=== PATIENT | male | born 1950 | race Caucasian/White ===

== ENCOUNTER 2019-04-24 05:30 | Observation (INO) | payer MEDICARE, OTHER, SELFPAY ==
[2019-04-11 10:00] VITALS: BP 150/81; PULSE 58; RESP 16; TEMP 36.3; O2SAT 97; BMI 30.6
--- NOTE | 2019-04-11 10:23 | SDCEKG_ITS ---
Test Reason : Blood Pressure : / mmHG Vent. Rate : 061 BPM Atrial Rate : 061 BPM P-R Int : 180 ms QRS Dur : 092 ms QT Int : 398 ms P-R-T Axes : 018 -06 001 degrees QTc Int : 400 ms Normal sinus rhythm Normal ECG Confirmed by MITCHEL WATTERS, JUDSON ([id number]), metropolitan editor FELIPA MOTT ([id number]) on 04/17/2019 11:29:12 AM Referred By: Kulwinder Berumen Confirmed By:JUDSON GRULLON MD
[2019-04-11 10:50] LABS: Absolute Lymphocyte Count 1.61 X10^3/uL (0.83-4.51); Absolute Neutrophil Count 3.4 X10^3/uL (2.0-7.7); Basophil# 0.03 X10^3/uL; Basophil% 0.5 % (0-1); Eosinophil# 0.26 X10^3/uL; Eosinophils% 4.4 % (0-5); Hematocrit 37.7 % (40-54); Hemoglobin 12.8 g/dL (13.0-16.5); Lymphocyte # 1.61 X10^3/ul (4.0); Lymphocyte % 27.4 % (19-41); Mean Corpuscular Hgb 31.6 pg (27.0-32.0); Mean Corpuscular Volume 93.1 fL (80-94); Mean Platelet Vol. 10.1 fl (6.2-12.0); Monocyte# 0.56 X10^3/uL; Monocyte% 9.5 % (0-10); NRBC Flagged by Analyzer 0 % (0-5); Neutrophil # 3.41 X10^3/uL (2.7-7.7); Platelet Count 162 K/mm3 (150-450); RBC Distribution Width CV 12.2 % (11.6-14.6); RBC Distribution Width SD 42.1 fl (35.1-43.9); Red Blood Count 4.05 M/mm3 (4.6-6.2); White Blood Count 5.9 K/mm3 (4.4-11.0)
[2019-04-11 11:16] LABS: Anion Gap 5 (5-15); BUN 17 mg/dL (7-18); BUN/Creat Ratio 21.5 RATIO (10-20); Calcium,Total 8.8 mg/dL (8.5-10.1); Chloride 109 mmol/L (98-107); Creatinine, Serum 0.79 mg/dL (0.70-1.30); EST Glomerular Filtration Rate 103 mL/min (>60); Est Glom Filt Rate - Afr Amer 124 mL/min (>60); Estimated Creatinine Clearance 64.26 ml/min; Glucose 104 mg/dL (74-106); Potassium 3.8 mmol/L (3.5-5.1); Sodium Level 139 mmol/L (136-145)
[2019-04-11 16:52] LABS: Hemoglobin A1c 5.3 % (4.2-6.3)
[2019-04-24] VITALS (11 sets, daily range): BP systolic 99–136; BP diastolic 58–83; PULSE 56–82; RESP 14–18; TEMP 36.4–37; O2SAT 89–100; BMI 30.6
[2019-04-24] MEDS: Lactated Ringers 1,000 ML 100 ML IV ×4 (06:14→23:39)
[2019-04-24 06:15] LABS: Bedside Glucose 135 mg/dL (70-110)
[2019-04-24] MEDS: Acetaminophen 500 MG Tablet 1000 MG PO ×3 (06:21→22:07)
[2019-04-24] MEDS: Gabapentin 600 MG Tablet PO (06:23)
[2019-04-24] MEDS: Magnesium Sulfate 4gm/100mL 4 GM/100 ML IV.SOLN. IV (06:24)
[2019-04-24] MEDS: Scopolamine 1mg/72hr Patch 1 PATCH TD (06:45)
--- NOTE | 2019-04-24 07:15 | KNEE_PTH ---
PATIENT: MATIAS SCHULZ LOC: MS3 U#:[id number] AGE/SX: 68/M ROOM: NC317 RE04/24/[address]: Dr. Kulwinder Berumen DO : 1950 BED: 1 DIS: 04/25/2019 SPEC #: [id number] RECD: 04/24/19 10:26 STATUS: MARIANN REQ #: [id number] MORIS: 04/24/19 07:[address]: Kulwinder Berumen DEPT: SURGICAL PATHOLOGY RECD BY: Raghu Dodson ENTERED: 04/24/19 11:14 SP TYPE: TOTAL KNEE OTHR DR: Dr. Graham Frost MD Tissues: Knee, NOS Procedures: Decalcification bone/plaque Surgery Specimen Level IV HEADER OPERATION: ERAS, total knee replacement PRE-OP DIAGNOSIS: Unilateral primary osteoarthritis, right knee TISSUE SUBMITTED: Bone and soft tissue, right knee MICROSCOPIC DIAGNOSIS Bone and soft tissue, right knee, total knee replacement/resection: Pieces of bone with degenerative osteoarthritic changes. Fibroadipose tissue, fibroconnective tissue and reactive synovial tissue. MARGARITA:anastacia 05/01/19 MICROSCOPIC DESCRIPTION Slides are reviewed. GROSS DESCRIPTION Received is one container designated bone and soft tissue right knee. The specimen consists of multiple fragments of onofre-yellow bone measuring in aggregate 15 x 12 x 2 cm. Also in the specimen container are multiple fragments of yellow-white soft tissue measuring in aggregate 4 x 3 x 2.5 cm. A number of bony fragments contain articular surfaces consistent with tibial plateau and femoral condyle and displaying prominent osteophyte formation, eburnation, and bone erosion. Jboss Architect sections are submitted in two cassettes as follows: 1 - soft tissue, 2 - bone after decalcification. / AM:anastacia 04/24/19 :5 CPT: 80194, 79214
[2019-04-24] MEDS: Cefazolin 2 GM in 0.9% Normal Saline 100 ML IV (07:20)
--- NOTE | 2019-04-24 08:39 | OP.PCM_ITS ---
Report of Operation Date of Procedure: 04/24/19 Pre-Operative Diagnosis: OA right knee Post-Operative Diagnosis: same Surgery/Procedure Performed:: Right TKR Description of Surgical Findings:: Primary Surgeon/Physician: Kulwinder Berumen budget accountant: Orlando Jeffries PA-C budget accountant: Pre-Operative Diagnosis: OA right knee Post-Operative Diagnosis: same Surgery/Procedure Performed: Right TKR Estimated Blood Loss: 10 cc Specimen's Removed: bone Type of Anesthesia: general ASA Class: 2 Implants: [Kieran Triathlon size 5 CR femur, size 6 tibia, 9 mm CS poly, 40 mm patella, all components press-fit ] Indications: Patient has severe end-stage osteoarthritis diagnosed via x-rays in the knee. They have failed all forms of conservative measures including activity modification, injections, anti-inflammatories, use of assistive device. The patient has pain that affects on a daily basis and prevents him from doing things that they enjoyed. They have elected to undergo the above procedure. The risks of the procedure were discussed at length and their questions were answered. Procedure Description: The patient was greeted in the preoperative area. The [right ] knee was then marked with a surgical marker. Patient was then taken to or [address]. They were administered a dose of antibiotics as well as tranexamic acid. Once adequate anesthesia was obtained and airway was secured to placed in supine position on the operating room table. A well-padded tourniquet was placed on the affected extremity. Leg was then prepped and draped in the usual sterile fashion from the knee down. Ioban was used on the skin. Surgical timeout was then performed and confirmed with all present. Six-inch Esmarch was used to examine the limb and tourniquet was then inflated to 250 mmHg. A longitudinal incision was then planned and carried out in the anterior aspect of the knee. The dissection was then carried the length of the incision the extensor mechanism was identified. Standard medial parapatellar arthrotomy was then performed revealing severe eburnation of bone and periarticular osteophytes. There is complete loss of cartilage especially in the medial compartment with varus alignment. Anterior fat pad was removed for visualization purposes and the anterior medial aspect of the tibia was skeletoni zed for exposure to the knee. The knee was then flexed the patella was inverted. Opening reamer was then used in the femur approximately 1 cm anterior to the attachment of the PCL. The intramedullary valgus wand was then placed in the femur set at 5? of valgus. The distal femoral cutting jig was then applied to the femur with anticipated resection of approximately 8 mm. This was then made with a oscillating saw. The sizing guide was then placed referencing off the posterior condyles and also reference off the epicondylar axis. This was measured and the appropriate size 4-in-1 cutting jig was then applied to the distal femur. Anterior posterior cuts were made followed by the anterior and posterior chamfer cuts. These bony pieces and fragments were removed and placed on the back table. Posterior retractor was then utilized and the tibia was subluxed anteriorly. Intramedullary tibial alignment jig was then applied to the tibia referencing off the medial one third of the tibial tubercle the anterior tibial spine the middle aspect of the tibiotalar joint. Also reference off patient's [place] slope. The tibial cutting jig was then pinned with anticipated resection of 2 mm off of the deficient medial tibial condyle. This cut was made with the oscillating saw. Once this was complete a laminar major donor coordinator was utilized in both medial lateral meniscus were removed and a posteri or capsular osteophytes were also removed. Posterior capsule release was performed in the posterior capsule as well as the geniculate arteries are treated with the aqua Balaji. The tibia was incised and the appropriate sized tibial tray was then pinned. The femoral trial was then placed and the knee was trialed. Full flexion-extension were easily achieved. The knee seemed to balance quite nicely. Any remaining osteophytes were removed at this time. Once this was complete the patella was everted and the [place] patella reaming device was then utilized the patella was then placed in the appropriate jig and reamer was then used to remove approximately 9 mm of the undersurface of the patella. A soft tissue remaining was in the way was removed and patella trial was then placed listed maintain excellent tracking using the no thumbs technique. The tibial tray at this point was punched to accommodate the fins of the final implant. Did use a cocktail of injection for postoperative pain control. The final components were then impacted. The tourniquet was deflated and hemostasis was perfect with Bovie cautery as well as the aqua Manus. Needle is once again trialed with different size polyethylenes to ensure the full range of motion was achieved as well as excellent balancing ligamentously was achieved. At this point the knee was copiously irrigated. Final implant was then inserted locking mechanism was engaged and confirmed to be locked. The arthrotomy was then closed with #1 Vicryl aggravate type fashion interrupted. Subcutaneous tissue was closed with 0 Vicryl and surgical sosa were placed in the skin. A occlusive silver impregnated dressing was then applied followed by well-padded sterile dressing secured with an Gt wrap. The patient was taken to the PACU in stable condition. No complications known at this time. Postoperatively we will maintain standard total knee postoperative protocol. The use of the physician cardiovascular physician assistant was integral during this procedure. They assisted with positioning placement of the tourniquet retracting closure and placement of the dressing. The procedure would have been much more difficult without their expertise and assistance budget accountant: Rigoberto Jeffries Type of Anesthesia:: General Anesthesiologist: Patricio Canseco Specimen's removed: bone Estimated Blood Loss (mL): 10cc - Admit VTE Documentation VTE Present on Admission: No VTE Mechan Device Prophylaxis: SCD's, Thigh High YANET Hose VTE Pharm Prophylaxis ordered?: Yes
[2019-04-24 09:48] LABS: Hematocrit 36.2 % (40-54); Hemoglobin 11.9 g/dL (13.0-16.5); Mean Corp Hgb Conc 32.9 g/dL (32-36); Mean Corpuscular Hgb 31.8 pg (27.0-32.0); Mean Corpuscular Volume 96.8 fL (80-94); Mean Platelet Vol. 9.9 fl (6.2-12.0); Platelet Count 186 K/mm3 (150-450); RBC Distribution Width CV 12.2 % (11.6-14.6); RBC Distribution Width SD 43.8 fl (35.1-43.9); Red Blood Count 3.74 M/mm3 (4.6-6.2); White Blood Count 8.4 K/mm3 (4.4-11.0)
[2019-04-24 09:59] LABS: Anion Gap 4 (5-15); BUN 14 mg/dL (7-18); BUN/Creat Ratio 16.1 RATIO (10-20); Calcium,Total 7.8 mg/dL (8.5-10.1); Chloride 108 mmol/L (98-107); Creatinine, Serum 0.87 mg/dL (0.70-1.30); EST Glomerular Filtration Rate 92 mL/min (>60); Est Glom Filt Rate - Afr Amer 112 mL/min (>60); Estimated Creatinine Clearance 73.87 ml/min; Glucose 189 mg/dL (74-106); Potassium 4.3 mmol/L (3.5-5.1); Sodium Level 138 mmol/L (136-145)
[2019-04-24 10:05] LABS: Bedside Glucose 164 mg/dL (70-110)
--- NOTE | 2019-04-24 13:33 | NURSING ---
Pt out of bed to bathroom at this time- tolerated well
[2019-04-24] MEDS: ALPRAZolam 0.25 MG Tablet PO (13:46)
[2019-04-24] MEDS: Cefazolin 1 GM/50 ML BAG IV ×2 (15:39→23:39)
[2019-04-24] MEDS: oxyCODONE 5 MG Tablet PO ×2 (15:46→20:13)
[2019-04-24] MEDS: Aspirin 325 MG Tablet PO (18:30)
[2019-04-24] MEDS: traMADol 50 MG Tablet PO (18:32)
[2019-04-24] MEDS: Carvedilol 25 MG Tablet PO (22:07)
[2019-04-24] MEDS: Senna/Docusate Sodium 1 Tablet 2 TABLET PO (22:07)
[2019-04-25] MEDS: traMADol 50 MG Tablet PO ×2 (00:56→13:20)
[2019-04-25 02:30] VITALS: BP 115/68; PULSE 65; RESP 18; TEMP 36.6; O2SAT 96
[2019-04-25] MEDS: oxyCODONE 5 MG Tablet PO ×4 (02:38→15:15)
[2019-04-25] MEDS: Acetaminophen 500 MG Tablet 1000 MG PO ×2 (05:21→14:01)
[2019-04-25 06:55] LABS: Hemoglobin 10.6 g/dL (13.0-16.5); Mean Corp Hgb Conc 33.1 g/dL (32-36); Mean Corpuscular Volume 96.7 fL (80-94); Mean Platelet Vol. 10.2 fl (6.2-12.0); Platelet Count 155 K/mm3 (150-450); RBC Distribution Width CV 12.3 % (11.6-14.6); RBC Distribution Width SD 43.6 fl (35.1-43.9); Red Blood Count 3.31 M/mm3 (4.6-6.2); White Blood Count 10.9 K/mm3 (4.4-11.0)
[2019-04-25 07:07] LABS: Anion Gap 4 (5-15); BUN 18 mg/dL (7-18); BUN/Creat Ratio 20.2 RATIO (10-20); Calcium,Total 7.8 mg/dL (8.5-10.1); Chloride 104 mmol/L (98-107); Creatinine, Serum 0.89 mg/dL (0.70-1.30); EST Glomerular Filtration Rate 90 mL/min (>60); Est Glom Filt Rate - Afr Amer 109 mL/min (>60); Estimated Creatinine Clearance 72.21 ml/min; Glucose 119 mg/dL (74-106); Potassium 4.2 mmol/L (3.5-5.1); Sodium Level 136 mmol/L (136-145)
[2019-04-25 07:36] VITALS: BP 116/57; PULSE 59; RESP 16; TEMP 37.4; O2SAT 95
[2019-04-25] MEDS: Pyridoxine HCl 50 MG Tablet 100 MG PO (07:38)
[2019-04-25] MEDS: Folic Acid 1 MG Tablet 0.5 MG PO (07:39)
[2019-04-25] MEDS: Senna/Docusate Sodium 1 Tablet 2 TABLET PO (07:39)
[2019-04-25] MEDS: Cyanocobalamin 500 MCG Tablet PO (07:39)
[2019-04-25] MEDS: Tamsulosin HCl 0.4 MG Capsule PO (07:39)
[2019-04-25] MEDS: amLODIPine 10 MG Tablet PO (07:40)
[2019-04-25] MEDS: Finasteride 5 MG Tablet PO (07:40)
[2019-04-25] MEDS: Ascorbic Acid 500 MG Tablet 1000 MG PO (07:41)
[2019-04-25] MEDS: Aspirin 325 MG Tablet PO (07:43)
--- NOTE | 2019-04-25 07:56 | PCM.PN.ORT ---
Subjective: Sitting at bedside eating breakfast. Patient has no complaints. Patient denies chest pain, shortness of breath, calf pain, nausea vomiting. Patient ready for discharge home. Objective: Dressing is clean dry intact. Vital signs labs within normal limits. Patient is afebrile, neurovascular is otherwise intact. No signs or symptoms of DVT. Patient has no respiratory distress, speaking in full sentences. - Physical Exam Vitals/I&O's: Vital Signs Temp Pulse Resp BP Pulse Ox 99.4 F H 59 L 16 116/57 L 95 04/25/19 07:36 04/25/19 07:36 04/25/19 07:36 04/25/19 07:36 04/25/19 07:36 Oxygen Flow Rate (L/min) 6 Oxygen Delivery Method Room Air Weight: 88.7 kg Body Mass Index (BMI) 30.6 Finger Stick Blood Glucose 164 Intake and Output for Last 24 Hours 04/23/19 04/24/19 04/25/19 23:59 23:59 23:59 Intake Total 4233.34 / 4833.34 2423 / 2423 Balance 4233.34 / 4833.34 2423 / 2423 General: Alert, Oriented x3, Cooperative HEENT: PERRLA Oral: Moist Mucosa Neurological: Cranial nerves II-XII grossly intact Psych/Mental Status: Normal Affect, Alert and oriented to time, place, person, mood and affect Laboratory Results 04/24/19 09:38: WBC 8.4, RBC 3.74 L, Hgb 11.9 L, Hct 36.2 L, MCV 96.8 H, MCH 31.8, MCHC 32.9, RDW Std Deviation 43.8, RDW Coeff of Terrance 12.2, Plt Count 186, MPV 9.9 04/24/19 09:38: Sodium 138, Potassium 4.3, Chloride 108 H, Carbon Dioxide 26.0, Anion Gap 4 L, BUN 14, Creatinine 0.87, Estim Creat Clear Calc 73.87, Est GFR (MDRD) Af Amer 112, Est GFR (MDRD) Non-Af 92, BUN/Creatinine Ratio 16.1, Glucose 189 H, Calcium 7.8 L 04/24/19 10:02: POC Glucose 164 H 04/25/19 06:15: WBC 10.9, RBC 3.31 L, Hgb 10.6 L, Hct 32.0 L, MCV 96.7 H, MCH 32.0, MCHC 33.1, RDW Std Deviation 43.6, RDW Coeff of Terrance 12.3, Plt Count 155, MPV 10.2 04/25/19 06:15: Sodium 136, Potassium 4.2, Chloride 104, Carbon Dioxide 28.0, Anion Gap 4 L, BUN 18, Creatinine 0.89, Estim Creat Clear Calc 72.21, Est GFR (MDRD) Af Amer 109, Est GFR (MDRD) Non-Af 90, BUN/Creatinine Ratio 20.2 H, Glucose 119 H, Calcium 7.8 L Current Medications Acetaminophen (Tylenol) 1,000 mg PO Q8 [facility] Last Admin: 04/25/19 05:21 Dose: 1,000 mg Documented by: Alprazolam (Xanax) 0.25 mg PO DAILY PRN PRN PRN Reason: ANXIETY Last Admin: 04/24/19 13:46 Dose: 0.25 mg Documented by: Amlodipine Besylate (Norvasc) 10 mg PO DAILY [facility] Last Admin: 04/25/19 07:40 Dose: 10 mg Documented by: Ascorbic Acid (Vitamin C) 1,000 mg PO DAILY [facility] Last Admin: 04/25/19 07:41 Dose: 1,000 mg Documented by: [facility]in) [facility] Last Admin: 04/25/19 07:43 Dose: 325 mg Documented by: Carvedilol (Coreg) 25 mg PO BID [facility] Last Admin: 04/24/19 22:07 Dose: 25 mg Documented by: Cyanocobalamin (Vitamin B12) 500 mcg PO DAILY [facility] Last Admin: 04/25/19 07:39 Dose: 500 mcg Documented by: Finasteride (Proscar) 5 mg PO DAILY [facility] Last Admin: 04/25/19 07:40 Dose: 5 mg Documented by: Folic Acid (Folic Acid) 0.5 mg PO DAILY@0800 [facility] Last Admin: 04/25/19 07:39 Dose: 0.5 mg Documented by: Sodium Chloride () 250 mls @ 15 mls/hr IV .[id number] PRN PRN Reason: Saline Flush Sodium Chloride () 250 mls @ 15 mls/hr IV .[id number] PRN PRN Reason: Additional IVPB Infusion Insulin Human Lispro (Humalog Kwikpen (Bkc)) 1 - 6 unit SC Q4H PRN PRN; Protocol PRN Reason: BG>/= 180, SEE PROTOCOL Lisinopril (Zestril) 40 mg PO DAILY [facility] Ondansetron HCl (Zofran) 4 mg IV Q8H PRN PRN PRN Reason: NAUSEA Oxycodone HCl (Oxyir) 5 - 10 mg PO Q4H PRN PRN PRN Reason: Pain Score 4-10/10 Last Admin: 04/25/19 07:03 Dose: 10 mg Documented by: Promethazine HCl (Phenergan) 12.5 mg IM Q6H PRN PRN; Protocol PRN Reason: NAUSEA/VOMITING Pyridoxine HCl (Vitamin B-6) 100 mg PO DAILY [facility] Last Admin: 04/25/19 07:38 Dose: 100 mg Documented by: Senna/Docusate Sodium (Senokot-S, Thea-Colace) 2 tablet PO BID [facility] Last Admin: 04/25/19 07:39 Dose: 2 tablet Documented by: Sodium Chloride () 10 - 40 ml IV UD PRN PRN Reason: SALINE FLUSH Tamsulosin HCl (Flomax) 0.4 mg PO DAILY@0830 [facility] Last Admin: 04/25/19 07:39 Dose: 0.4 mg Documented by: Tramadol HCl (Ultram) 50 - 100 mg PO Q6H PRN PRN Reason: Pain Score 1-10/10 Last Admin: 04/25/19 00:56 Dose: 100 mg Documented by: Medical Necessity - Tobacco Use Smoking Status: Former smoker Tobacco Use: Non-smoker Assessment/Plan All Active Problems Pancreatitis (Acute) Status post left total knee arthroplasty Plan 1. Continue all pain medications as prescribed 2. Continue physical therapy today, as well as outpatient, weight-bear as tolerated with walker 3. Aspirin 325 mg 1 p.o. every 12 hours x30 days for postop DVT prophylaxis 4. Encourage incentive spirometry 5. Follow-up as scheduled, see pink sheet 6. Discharge home today
--- NOTE | 2019-04-25 08:07 | DCINST_ITS ---
Discharge Diet: No Restrictions Discharge Activity: May Not Drive, May Shower, Use Walker May shower in (days): 3 Ice area for (Minutes): 20 - each hour while awake. Weight Bearing Status: Weight bearing as tolerated Elevate: Operative Extremity Additional Activity Instructions:: Wear elastic stockings for 2 weeks after your surgery. Call your doctor if your incision/area has: Continuous Slow Oozing, Sudden Increased Bleeding, Increased Pain/ Swelling, Increased Redness, Foul Smelling Discharge Call your doctor if you observe: Fever of 101 or Higher, Coldness, Increased Pain - in extremity, Numbness or Tingling, Change in Color, Calf discomfort, Uncontrolled pain Change Dressing in (Days):: 0 - and daily as needed. Remove Dressing in (days):: 8 Cleanse incision/area with: Soap & Water Allergies/Adverse Reactions: Allergies No Known Allergies Allergy (Verified 04/24/19 05:57) Medications to take at Discharge ALPRAZolam [Xanax] 0.25 mg PO DAILY PRN PRN 10/13/15 Ascorbic Acid [Vitamin C] 1,000 mg PO DAILY 10/13/15 Carvedilol 25 mg PO BID 10/13/15 Cyanocobalamin (Vitamin B-12) [Vitamin B-12] 500 mcg PO DAILY 10/13/15 Felodipine [Plendil] 10 mg PO DAILY 10/13/15 Finasteride [Proscar] 5 mg PO DAILY 10/13/15 Folic Acid 0.4 mg PO DAILY 10/13/15 Lisinopril [Zestril] 40 mg PO DAILY 10/13/15 [place]-3 Fatty Acids [Fish Oil] 1,200 mg PO DAILY 10/13/15 Pyridoxine HCl [Vitamin B6] 100 mg PO DAILY 10/13/15 Tamsulosin HCl 0.4 mg PO DAILY 10/13/15 Amlodipine [Norvasc] 10 mg PO DAILY 04/11/19 Sildenafil Citrate [Viagra] 50 mg PO PRN PRN 04/11/19 Acetaminophen [Tylenol] 1,000 mg PO Q8 #90 tab 04/25/19 Aspirin 325 mg PO BIDCM #60 tab 04/25/19 Oxycodone [Oxyir] 5 - 10 mg PO Q4H PRN PRN 7 Days #84 tab 04/25/19 The following prescriptions were given: Aspirin 325 mg PO BIDCM #60 tab Transmission Status: Pending to [id number] Oxycodone [Oxyir] 5 - 10 mg PO Q4H PRN PRN 7 Days #84 tab PRN Reason: Pain Score 4-10/10 Transmission Status: Received by [id number] Acetaminophen [Tylenol] 1,000 mg PO Q8 #90 tab Transmission Status: Pending to [facility][id number] Primary Care Physician: Graham Frost MD [Primary Care Provider] - Test Results: Test results from this visit will be discussed in further detail at your follow- up appointment, if applicable. Please Follow Up With: Rigoberto Jeffries PA-C When: as scheduled
[2019-04-25 09:29] VITALS: PULSE 70
[2019-04-25 09:35] VITALS: BP 132/89; PULSE 71
[2019-04-25] MEDS: Carvedilol 25 MG Tablet PO (09:37)
[2019-04-25] MEDS: Lisinopril 40 MG Tablet PO (09:37)
--- NOTE | 2019-04-25 10:05 | CASEMGMT ---
RN CHADD Face to Face with patient for initial transition planning/care coordination assessment. RN CM introduced self and role at [facility]. Patient lying in bed, alert and oriented. Patient willing to participate in assessment and is able to answer all questions appropriately. Care providers, pharmacy, and demographics verified. Patient wishes to discharge home and is setup with [facility] for outpatient therapy. Patient states he has no further needs or concerns at this time. CM to follow for discharge planning needs that may arise. PCP: Flo Specialists: Alicia Berumen Pharmacy: [facility] Insurance: [facility], [facility] Prescription Benefit: yes Living Will/HPOA: none LNOK: Living Arrangements: Patient lives with in 2 story home with bed and bath on first floor. Transportation: DME/HHC: Patient has cane, walker, shower chair, and raised toilet seat. Disposition Plan: Patient to discharge home with outpatient therapy, family support, and follow-up plans in place. Meredith CASTILLO, RN, CM
[2019-04-25 13:57] VITALS: BP 136/69; PULSE 83; RESP 16; TEMP 37.7; O2SAT 93
[2019-04-25 15:10] VITALS: TEMP 37.2
== END 2019-04-25 15:34 | disposition home or self-care (01) ==
LOC: ACINP 04-25 06:13 → MS3 04-25 06:13
PROVIDERS: Admitting Provider Orthopaedic Surgery; Family Provider Internal Medicine; PCP Internal Medicine; Referring Provider Orthopaedic Surgery; Visit Provider Orthopaedic Surgery
PROC: (CPT 27447; principal; 2019-04-24 06:50)
DX: M17.11 Unilateral primary osteoarthritis, right knee (principal); E11.9 Type 2 diabetes mellitus without complications; I10 Essential (primary) hypertension; F32.9 Major depressive disorder, single episode, unspecified; Z79.899 Other long term (current) drug therapy; Z87.891 Personal history of nicotine dependence; F41.9 Anxiety disorder, unspecified
CPT/HCPCS: 01400; 27447; 36415; 80048; 82962; 83036; 85025; 85027; 87081; 88305; 88311; 93005; 96361; 96365; 96366; 97110; 97116; 97162; 97166; 97530; 97535; 99218; 99251; C1776; J7120; G0378; G0379; G0463

== ENCOUNTER 2019-05-29 07:02 | Emergency (ER) | payer MEDICARE, OTHER, SELFPAY ==
[2019-04-24 11:06] VITALS: BMI 30.6
[2019-05-29 07:03] VITALS: BP 132/100; PULSE 90; RESP 18; TEMP 36.7; O2SAT 97; BMI 27.3
[2019-05-29 07:09] VITALS: BP 139/93; PULSE 88; RESP 95
--- NOTE | 2019-05-29 07:19 | EKG12_ITS ---
Test Reason : ABD PAIN Blood Pressure : / mmHG Vent. Rate : 081 BPM Atrial Rate : 081 BPM P-R Int : 158 ms QRS Dur : 090 ms QT Int : 366 ms P-R-T Axes : 046 -24 020 degrees QTc Int : 425 ms Normal sinus rhythm Leftward axis Confirmed by TREE WATTERS, MATIAS ([id number]), film editor supervisor FELIPA MOTT ([id number]) on 05/31/2019 8:54:28 AM Referred By: MINISETRIO Confirmed By:MATIAS LEAVITT MD
--- NOTE | 2019-05-29 07:20 | ED.VIS.GEN ---
History of Present Illness Chief Complaint: Abd Pain Informant: Patient, Significant Other Onset: Today - He was awakened from sleep with pain that does not radiate. He does report nausea and emesis x1. He states he believes he has exacerbation of pancreatitis. The etiology of his pancreatitis is unknown. He reports having a half a glass of wine on Wednesday., Days - Complaints of a knot sensation in the epigastric left upper quadrant that started a couple of days ago. Context: Sudden Onset Timing: Continuous Quality: Pain Location: Epigastric left upper quadrant Current Severity: Moderate Maximum Severity: Severe Worsened by: Nothing Relieved by: Nothing Associated Symptoms: Nausea and vomiting x1 Narrative: Patient is an elderly male with history of hypertension and diet-controlled diabetes who presents with a knot sensation in the epigastric area that started several days ago. He admits to having half a glass of wine on Wednesday. This morning he was awakened from sleep with severe epigastric left upper quadrant pain without radiation. He reports nausea and had one episode of emesis. Emesis was clear. He denies black or maroon stool. He does have history of renal lithiasis. He denies dysuria, frequency, urgency or hematuria. He and his states he has not had abdominal pain due to pancreatitis in 4 years. Prior similar symptoms: Yes Recent Illness/Hospitalization: No - Past Medical History (1) Pancreatitis Status: Acute (2) BPH (benign prostatic hyperplasia) Status: Chronic (3) HTN (hypertension) Status: Chronic Past Medical History - Allergies and Home Meds Allergies/Adverse Reactions: Allergies No Known Allergies Allergy (Verified 05/29/19 07:03) Primary Care Physician: Bruce Rossi MD [Primary Care Provider] - Prior records reviewed: Yes Surgical History: no surgical history Lives: Spouse/ Significant Other Smoking Status: Never smoker Alcohol: Rare Drugs: None - Family History Maternal Family History: Reports: - Paternal Family History: Reports: No pertinent history Sibling Family History: Reports: - Review of Systems General: Denies: Chills, Fever, Sweats Eyes: Denies: Visual changes - bilaterally, Blurred Vision - bilaterally, Diplopia ENT: Denies: Rhinorrhea, Sore throat Cardiovascular: Denies: Chest pain, Palpitations Respiratory: Denies: Dyspnea, Cough, Dyspnea on exertion Gastrointestinal: Reports: Abdominal pain, Nausea, Vomiting. Denies: Diarrhea, Constipation, Melena, Hematochezia, -, - Genitourinary: Denies: Dysuria, Hematuria, Frequency Musculoskeletal: Denies: Myalgias, Arthralgias, Neck pain, Back pain, Swelling, Extremity Pain Skin: Denies: Rash, Wounds Neurological: Denies: Headache, Weakness, Numbness Hematologic: Denies: Easy bruising, Easy bleeding Physical Exam Vital Signs/Narrative: Vital Signs Temp Pulse Resp BP Pulse Ox 05/29/19 07:09 88 95 H 139/93 H 05/29/19 07:03 98.1 F 90 18 132/100 H 97 Inital Vital Signs reviewed: Yes General: Well nourished, Well developed, Acute Distress Head: Normocephalic, Atraumatic Eyes: Perrl, EOMI ENT: Moist mucous membranes, No rhinorrhea Neck: Supple, Nontender Cardiovascular: Regular rate, Regular rhythm, No murmurs Respiratory: No distress, CTA bilaterally, Chest nontender Abdomen: Soft, Nontender, Nondistended, Normal bowel sounds, No masses Back: Nontender, Normal Inspection Extremities: Nontender, No edema Skin: Normal color, No rash Neurological: Alert, Oriented x3, Cranial nerves II-XII grossly intact, Normal Strength, Normal Sensation, Normal DTR Psychological: Normal affect, Normal Mood Diagnostic/Tx/Re-eval - Medical Decision Making Patient presents with with epigastric pain that abruptly got worse. This may represent peptic ulcer disease, pancreatitis, cholelithiasis or ureterolithiasis. Work-up was initiated. He was medicated with Zofran for his nausea and morphine for his pain. He was informed of his results. He reported little improvement with therapy. He was given a GI cocktail. He was reassessed at 0905. His pain resolved. His informing he recently had surgery and was on aspirin and NSAID. Suspect patient has gastritis versus peptic ulcer disease. Since he does not have black or maroon stool no further testing is indicated or warranted. He was discharged with prescription for Pepcid. ED Disposition - Plan for ED Patient: Disposition: Home or Assisted Living Diagnosis: Acute gastritis without bleeding Instructions: GASTRITIS vs. ULCER Prescriptions: Famotidine [Pepcid] 20 mg PO BID #60 tab Transmission Status: Pending to [facility]/pharmacy #[id number] Referrals: Bruce Rossi MD [Primary Care Provider] - 1 Week if not improving
[2019-05-29] MEDS: Morphine 4 MG/ML Syringe IV (07:30)
[2019-05-29] MEDS: Ondansetron 4 MG/2 ML Vial IV (07:30)
[2019-05-29 07:43] LABS: Absolute Lymphocyte Count 0.93 X10^3/uL (0.83-4.51); Absolute Neutrophil Count 8.1 X10^3/uL (2.0-7.7); Basophil# 0.03 X10^3/uL; Basophil% 0.3 % (0-1); Eosinophil# 0.24 X10^3/uL; Eosinophils% 2.4 % (0-5); Hematocrit 38.8 % (40-54); Hemoglobin 12.8 g/dL (13.0-16.5); Lymphocyte # 0.93 X10^3/ul (4.0); Lymphocyte % 9.5 % (19-41); Mean Corpuscular Hgb 30.5 pg (27.0-32.0); Mean Corpuscular Volume 92.6 fL (80-94); Mean Platelet Vol. 9.4 fl (6.2-12.0); Monocyte# 0.55 X10^3/uL; Monocyte% 5.6 % (0-10); NRBC Flagged by Analyzer 0 % (0-5); Neutrophil # 8.06 X10^3/uL (2.7-7.7); Neutrophil % 81.9 % (47-70); Platelet Count 226 K/mm3 (150-450); RBC Distribution Width CV 11.9 % (11.6-14.6); RBC Distribution Width SD 40.4 fl (35.1-43.9); Red Blood Count 4.19 M/mm3 (4.6-6.2); White Blood Count 9.8 K/mm3 (4.4-11.0)
[2019-05-29 08:03] LABS: ALB/GLOB Ratio 0.9 RATIO (0.9-2.4); AST(SGOT) 12 U/L (15-37); Alanine Aminotransfer ALT/SGPT 19 U/L (16-61); Albumin, Serum 3.5 g/dL (3.2-5.0); Alkaline Phosphatase 113 U/L (45-117); Anion Gap 7 (5-15); BUN 7 mg/dL (7-18); BUN/Creat Ratio 9.7 RATIO (10-20); Calcium,Total 9.4 mg/dL (8.5-10.1); Chloride 105 mmol/L (98-107); Creatinine, Serum 0.72 mg/dL (0.70-1.30); EST Glomerular Filtration Rate 114 mL/min (>60); Est Glom Filt Rate - Afr Amer 138 mL/min (>60); Estimated Creatinine Clearance 65.55 ml/min; Globulin 3.7 g/dL (2.2-4.2); Glucose 145 mg/dL (74-106); Lipase 66 U/L (73-393); Potassium 3.6 mmol/L (3.5-5.1); Protein, Total 7.2 g/dL (6.4-8.2); Sodium Level 137 mmol/L (136-145)
[2019-05-29 08:21] VITALS: BP 125/82; PULSE 77; RESP 10; O2SAT 96
[2019-05-29] MEDS: Mag Hydrox/Al Hydrox/Simeth 30 ML UDC PO (08:30)
== END 2019-05-29 09:26 | disposition home or self-care (01) ==
PROVIDERS: Emergency Provider Emergency Medicine; PCP Internal Medicine
DX: K29.00 Acute gastritis without bleeding (principal); E11.9 Type 2 diabetes mellitus without complications; I10 Essential (primary) hypertension; N40.0 Benign prostatic hyperplasia without lower urinary tract symptoms
CPT/HCPCS: 80053; 83690; 85025; 93005; 96374; 96375; 99284; A4216; J2405

== ENCOUNTER 2019-06-30 19:59 | Emergency (ER) | payer MEDICARE, OTHER, SELFPAY ==
[2019-06-30 20:00] VITALS: BP 153/91; PULSE 106; RESP 16; TEMP 37.1; O2SAT 95; BMI 27.6
[2019-06-30 20:36] LABS: Absolute Lymphocyte Count 1.22 X10^3/uL (0.83-4.51); Absolute Neutrophil Count 8.5 X10^3/uL (2.0-7.7); Basophil# 0.01 X10^3/uL; Basophil% 0.1 % (0-1); Hematocrit 43.4 % (40-54); Hemoglobin 14.5 g/dL (13.0-16.5); Lymphocyte # 1.22 X10^3/ul (4.0); Lymphocyte % 11.6 % (19-41); Mean Corp Hgb Conc 33.4 g/dL (32-36); Mean Corpuscular Hgb 29.8 pg (27.0-32.0); Mean Corpuscular Volume 89.3 fL (80-94); Mean Platelet Vol. 9.8 fl (6.2-12.0); Monocyte# 0.79 X10^3/uL; Monocyte% 7.5 % (0-10); NRBC Flagged by Analyzer 0 % (0-5); Neutrophil # 8.46 X10^3/uL (2.7-7.7); Neutrophil % 80.4 % (47-70); Platelet Count 239 K/mm3 (150-450); RBC Distribution Width CV 12.3 % (11.6-14.6); RBC Distribution Width SD 40.2 fl (35.1-43.9); Red Blood Count 4.86 M/mm3 (4.6-6.2); White Blood Count 10.5 K/mm3 (4.4-11.0)
[2019-06-30 20:50] LABS: Anion Gap 4 (5-15); BUN 11 mg/dL (7-18); BUN/Creat Ratio 13.2 RATIO (10-20); Calcium,Total 9.7 mg/dL (8.5-10.1); Chloride 104 mmol/L (98-107); Creatinine, Serum 0.84 mg/dL (0.70-1.30); EST Glomerular Filtration Rate 96 mL/min (>60); Est Glom Filt Rate - Afr Amer 117 mL/min (>60); Estimated Creatinine Clearance 78.04 ml/min; Glucose 139 mg/dL (74-106); Potassium 3.5 mmol/L (3.5-5.1); Sodium Level 136 mmol/L (136-145)
--- NOTE | 2019-06-30 20:55 | CT_ITS ---
HISTORY: ABD PAIN, N/V X 2 DAYS EXAMINATION: CT Abdomen And Pelvis W/ Contrast Injection TECHNIQUE: Helically acquired images were obtained of the abdomen and pelvis following IV contrast. A radiation dose optimization technique was used for this scan. IV Contrast dosage and agent: 100mL Isovue-300 IV Oral contrast: yes COMPARISON: None FINDINGS: Lower thorax: Clear. No pleural effusion or pericardial effusion. Nonvisualization of the gallbladder. No biliary dilatation. Normal liver, spleen, and pancreas. Both kidneys are normal in position. Calyceal stone or stone cluster measuring 6 mm in aggregate at the lower pole of the left kidney. Left renal midpole 3 mm stone and left renal upper pole 2 mm stone. Distal left ureter 9 x 6 mm stone approximately 1 cm proximal to the left UVJ. No associated ureteral dilatation or obstruction identified at this time. Right renal small parapelvic cysts. Bilateral renal opacification without evidence of hydronephrosis or suspicious renal lesion. The adrenal glands are not enlarged. Abdominal aorta is normal in caliber. No ascites or retroperitoneal lymph node enlargement. GI tract: No obstruction. Marked diverticulosis of the left and sigmoid colon without CT findings of diverticulitis. Pelvis: Poor visualization of the lower pelvis secondary to streak artifact related to bilateral total hip prostheses. As visualized, normal urinary bladder. No free fluid or lymph node enlargement. Small fat-containing right inguinal hernia. Bones: No acute osseous abnormality. Lumbar spine advanced degenerative spondylosis. CT/Abdomen/Pelvis WITH Contrast IMPRESSION: 1. Distal left ureter 9 mm stone without hydroureter or current CT findings of obstructive uropathy. 2. Multiple nonobstructing left renal stones. 3. No bowel obstruction or acute abdominal disease identified. 4. Marked diverticulosis coli without CT findings of diverticulitis. 5. Right inguinal small fat-containing hernia and additional nonacute findings, as above. Individualized dose optimization techniques were used for this CT. at 0044 Reported and signed by: Jimmie Piper MD Electronically Signed: Jimmie Piper, at 0:42 EST Tel , Service support ,
[2019-06-30] MEDS: 0.9% Normal Saline 1,000 ML 125 ML IV (21:14)
[2019-06-30] MEDS: Morphine 4 MG/ML Syringe IV ×2 (21:15→22:48)
[2019-06-30] MEDS: Ondansetron 4 MG/2 ML Vial IV (21:15)
[2019-06-30 21:24] LABS: AST(SGOT) 18 U/L (15-37); Alanine Aminotransfer ALT/SGPT 23 U/L (16-61); Alkaline Phosphatase 123 U/L (45-117); Bilirubin, Direct 0.22 mg/dL (0.00-0.30); Globulin 3.8 g/dL (2.2-4.2); Lipase 49 U/L (73-393); Protein, Total 7.8 g/dL (6.4-8.2)
[2019-06-30 21:54] LABS: Bacteria 0 SEEN /hpf (None Seen); Red Blood Cells-Urine 0 SEEN /hpf (0-5); White Blood Cells 0 SEEN /hpf (0-5)
[2019-06-30 21:58] LABS: Color, Urine Yellow (Yellow); Glucose, Dipstick Normal (Normal); Ketone-Dipstick 50 mg/dl (Negative); Leukocyte Esterase-Dipstick Negative /ul (Negative); Nitrite-Dipstick Negative (Negative); Occult Blood-Urine Negative /ul (Negative); Protein-Dipstick 30 mg/dl (Negative); Urine Bilirubin Dipstick Negative (Negative); Urine Clarity Clear (Clear); Urine Urobilinogen Normal (Normal); Urine pH 6.5 (5.0 - 8.0)
[2019-06-30 22:08] LABS: Mucous, Urine 1+ /hpf (<or=2+); Squamous Epithelial Cells - UA 0-5 SEEN /hpf (0-5)
[2019-06-30] MEDS: proMETHazine 25 MG/ML Syringe 12.5 MG IV (22:47)
--- NOTE | 2019-06-30 23:12 | EKG12_ITS ---
Test Reason : Blood Pressure : / mmHG Vent. Rate : 090 BPM Atrial Rate : 090 BPM P-R Int : 162 ms QRS Dur : 090 ms QT Int : 366 ms P-R-T Axes : 044 -29 030 degrees QTc Int : 447 ms Normal sinus rhythm Normal ECG When compared with ECG of 29-MAY-2019 07:30, No significant change was found Confirmed by MITCHEL WATTERS, JUDSON ([id number]), purchasing expeditor EUN DORANTES ([id number]) on 07/11/2019 7:48:53 AM Referred By: DERRICK Confirmed By:JUDSON GRULLON MD
--- NOTE | 2019-06-30 23:43 | ED.DCSUM_ITS ---
- ER Visit Summary Date of Service: 06/30/19 Chief Complaint: [Abdominal pain] History of Present Illness: The patient is a 69 M [presents to the emergency department complaint of abdominal pain that started yesterday. Patient states that pain came on gradually and progressively worsened. Patient describes it as upper abdomen. He has had nausea and vomiting with it and threw up about 5 times yesterday and threw up prior to arrival in the emergency department today. Patient has had small amount of watery stool today. He denies any blood in his stool. Patient states that he had a similar episode of discomfort about 3 weeks ago and was seen in the emergency department and diagnosed with gastritis. Patient was started on Pepcid and patient was careful about not eating spicy and greasy foods and he had no further issues with his stomach until yesterday. Patient has prior history of hypertension and history of pancreatitis. Patient's had prior cholecystectomy. He denies any fevers. He denies urinary symptoms. He denies any chest pain or shortness of breath. Patient denies any blood in his stool or black tarry stool.] Physical Examination: [HEENT-PERRLA, EOMI. Cranial nerves II through XII grossly intact. TMs clear. Mucous membranes moist. No adenopathy. Cardiovascular-regular rate and rhythm without murmur or ectopy Lungs-clear to auscultation, chest wall stable without crepitus or subcu emphysema Abdomen-normoactive bowel sounds, soft. Patient has tenderness palpation over the epigastric region with some guarding. There is no rebound, rigidity, or peritoneal signs. Extremities-intact ?4, normal range of motion, normal pulses, atraumatic] Test Results: [CBC with differential obtained showed a white count of 10.5, hemoglobin 14.5, hematocrit 43, placed 239. Chemistries unremarkable. LFTs were normal. Lipase was 49. Urinalysis was normal. EKG obtained arrival shows sinus rhythm with a ventricular rate of 90 bpm with no acute ST segment changes. Troponin was less than 0.015. CT scan of the abdomen pelvis with IV and p.o. contrast ordered and showed a 9 mm stone at the left distal ureter a centimeter proximal to the UVJ. There is no evidence of obstruction however. Nothing else significant on the study.] Emergency Department Course and Treatment: [Patient was medicated with morphine and Zofran on arrival. Patient was given a second dose of morphine for con tinued pain. Patient did have good pain relief with that. Patient has no pain over the left lower quadrant and I do not believe the cause of his pain is related to his kidney stone. Patient states that he is passed multiple stones in the past. He is never had to have any type of procedure to help him pass a stone. Patient also received a GI cocktail while here.] Treatment Plan: [We will be referred to GI for follow-up for possible EGD. Patient will be given a prescription for Pepcid. Patient also advised to follow-up with urology. Patient advised to return if worsening pain, fever, vomiting, or condition should worsen anyway.] Disposition: [Discharged home in stable condition] Impression: [Abdominal pain-gastritis versus peptic ulcer disease Urolithiasis ] This note was generated with [employer] dictation software. It may contain incorrect words, spelling, and punctuation that were not noted in review of the chart prior to signing ED Disposition - Plan for ED Patient: Referrals: Bruce Rossi MD [Primary Care Provider] -
[2019-06-30 23:52] VITALS: BP 121/83; PULSE 92; RESP 16; O2SAT 93
--- NOTE | 2019-07-01 01:01 | ED.DEP ---
ED Disposition - Plan for ED Patient: Instructions: ABDOMINAL PAIN, Unkown Cause, (Male), KIDNEY STONE w/ Colic, GASTRITIS vs. ULCER Prescriptions: Hydrocodone Bitart/Apap 5-325 [[place] 5MG-325MG] 1 tab PO Q4H PRN PRN 2 Days #10 tab PRN Reason: Pain Prescription Printed Famotidine [Pepcid] 20 mg PO BID #28 tab Prescription Printed Ondansetron [Zofran Odt] 4 mg PO Q8H PRN PRN #10 tab PRN Reason: Nausea Prescription Printed Referrals: Bruce Rossi MD [Primary Care Provider] - Wilver Ochoa MD [STAFF PHYSICIAN] - 3-5 Days Tawana Szymanski MD [STAFF PHYSICIAN] - 3-5 Days
[2019-07-01] MEDS: Mag Hydrox/Al Hydrox/Simeth 30 ML UDC PO (01:11)
[2019-07-01 01:18] VITALS: RESP 16
== END 2019-07-01 01:19 | disposition home or self-care (01) ==
LOC: ED 21:14
PROVIDERS: Emergency Provider Emergency Medicine; PCP Internal Medicine
DX: R10.9 Unspecified abdominal pain (principal); N20.1 Calculus of ureter; K29.70 Gastritis, unspecified, without bleeding; I10 Essential (primary) hypertension; Z90.49 Acquired absence of other specified parts of digestive tract
CPT/HCPCS: 74177; 80048; 80076; 81001; 83690; 84484; 85025; 93005; 96361; 96374; 96375; 96376; 99284; J7030; Q9967; A4216; J2405

== ENCOUNTER 2019-07-14 05:32 | Day surgery (SDC) | payer MEDICARE, OTHER, SELFPAY ==
[2019-07-14 05:57] VITALS: BP 128/78; PULSE 64; RESP 16; TEMP 36.7; O2SAT 98; BMI 29.6
[2019-07-14] MEDS: Lactated Ringers 1,000 ML 100 ML IV (06:02)
[2019-07-14 06:16] LABS: Bedside Glucose 116 mg/dL (70-110)
[2019-07-14] MEDS: Cefazolin 2 GM in 0.9% Normal Saline 100 ML IV (07:24)
--- NOTE | 2019-07-14 07:29 | DCINST_ITS ---
Discharge Diet: Light diet - advance as tolerated Discharge Activity: Return to Normal Activity Call your doctor if your incision/area has: Sudden Increased Bleeding Call your doctor if you observe: Fever of 101 or Higher Suture Line Care: Avoid Pulling/Pushing, Avoid Pinching/Bending Allergies/Adverse Reactions: Allergies No Known Allergies Allergy (Verified 07/14/19 05:35) Medications to take at Discharge Ascorbic Acid [Vitamin C] 1,000 mg PO DAILY 10/13/15 Carvedilol 25 mg PO BID 10/13/15 Cyanocobalamin (Vitamin B-12) [Vitamin B-12] 500 mcg PO DAILY 10/13/15 Felodipine [Plendil] 10 mg PO DAILY 10/13/15 Finasteride [Proscar] 5 mg PO DAILY 10/13/15 Folic Acid 0.4 mg PO DAILY 10/13/15 Lisinopril [Zestril] 40 mg PO DAILY 10/13/15 Zimmerman-3 Fatty Acids [Fish Oil] 1,200 mg PO DAILY 10/13/15 Pyridoxine HCl [Vitamin B6] 100 mg PO DAILY 10/13/15 Tamsulosin HCl 0.4 mg PO DAILY 10/13/15 Amlodipine [Norvasc] 10 mg PO DAILY 04/11/19 Ondansetron [Zofran Odt] 4 mg PO Q8H PRN PRN #10 tab 07/01/19 Ciprofloxacin [Cipro] 500 mg PO BID #6 tab 07/14/19 Famotidine [Pepcid] 20 mg PO DAILY 07/14/19 Hydrocodone/Acetaminophen [[place] 5-325 Tablet] 1 each PO Q4H PRN PRN 5 Days #10 tablet 07/14/19 Primary Care Physician: Bruce Rossi MD [Primary Care Provider] - Test Results: Test results from this visit will be discussed in further detail at your follow- up appointment, if applicable. Please Follow Up With: Wilver Ochoa MD When: in 2 weeks, please call to make an appointment.
[2019-07-14 08:26] VITALS: BP 128/78; BP 131/77; PULSE 62; RESP 16; TEMP 36.3; O2SAT 92
--- NOTE | 2019-07-14 08:28 | PCM.OPRPT ---
Report of Operation Date of Procedure: 07/14/19 Pre-Operative Diagnosis: Left ureteral calculi with obstruction 9 mm Post-Operative Diagnosis: The same Surgery/Procedure Performed:: Cystoscopy, left ureteroscopy, balloon dilation of the left ureter, laser lithotripsy of stone, and left stent placement. Description of Surgical Findings:: Patient presented to the hospital for treatment of a obstructing distal ureteral calculus 9 millimeters in size in the left ureter. We discussed how the procedure is done what to expect afterwards he probably will need a stent. We discussed the discomfort that the stent would cause, burning with urination, frequency, urgency, pain in the kidney, blood in the urine. We also discussed the risk of the procedure including bleeding and infection and the risk of anesthesia. We discussed the very rare risk of injury or scar tissue development in the ureter after this procedure. We also discussed the possibility that the stone would not be able to be treated completely and he may need multiple procedures. After discussion with the patient in the preoperative area also I saw the patient in the office discussing the same outcomes he signed the consent form, and all his questions were answered. Male patient was taken back to the operating room after smooth induction of general anesthesia he was placed supine on the table. We then repositioned him in dorsolithotomy position with the legs in stirrups. We made sure all his pressure points were padded. He had SCDs on for DVT prophylaxis and was loaded with IV antibiotics prior to the procedure. Imaging was reviewed if available. The penis and testicles were then prepped and draped in the usual sterile fashion. I went into the bladder with a 21 Amharic rigid cystoscopy ureteroscopy after gentle dilation of the urethra. The urethra findings were normal . The prostate findings were significant obstruction bilateral hypertrophy no median lobe . Inside the bladder the trigone was inspected left and right brandon of the bladder and posterior and dome of the bladder was inspected and the main findings in the bladder was normal bladder with mild to moderate trabeculation . I then cannulated the left ureter and used a wire to go up to the ureter then over the wire I performed balloon dilation of the distal ureter with a ureteral balloon dilator, the balloon dilator size was 12 Amharic . I then left the wire in place and next to the wire I went up with a ureteroscope. I was able to reach the stone successfully and then lasered the stone using a laser fiber and perform laser lithotripsy on the stone until the stone broke up into tiny fragments. After successful complete lasering of the stone and its fragments then I worked my way out of the ureter and over the wire I then loaded up a stent and advanced a stent up into the left kidney. I then pulled on the wire and the stent coiled in the kidney and bladder in good position. I then drained the bladder with the cystoscope the patient's anesthetic was reversed he will be given pain medicine antibiotics and instructions to call the office for an appointment to remove the stent. Patient's anesthetic is being reversed and is taken back to the PACU in stable condition. Type of Anesthesia:: General Drains: stent left side - Admit VTE Documentation VTE Present on Admission: No VTE Mechan Device Prophylaxis: SCD's
[2019-07-14 08:35] VITALS: BP 115/68; BP 128/78; PULSE 65; RESP 16; O2SAT 92
[2019-07-14 08:46] VITALS: BP 118/69; BP 128/78; PULSE 65; RESP 17; TEMP 36.6; O2SAT 98
[2019-07-14 09:47] VITALS: BP 128/78
== END 2019-07-14 09:51 | disposition home or self-care (01) ==
LOC: SDC 05:32 → AC 05:33
PROVIDERS: PCP Internal Medicine; Referring Provider Urology; Visit Provider Urology
PROC: 0TJ98ZZ Inspection of Ureter, Via Natural or Artificial Opening Endoscopic (ICD-10-PCS; CPT 52352; principal; 2019-07-14 07:20)
DX: N20.1 Calculus of ureter (principal); I10 Essential (primary) hypertension; E11.9 Type 2 diabetes mellitus without complications; Z87.891 Personal history of nicotine dependence; Z87.442 Personal history of urinary calculi
CPT/HCPCS: 52356; 76000; 82962; J7120; C1769; C2617; J2405

== ENCOUNTER → 2019-10-31 09:25 | Outpatient (CLI) | payer MEDICARE, OTHER, SELFPAY | PROVIDERS: PCP Internal Medicine; Referring Provider Urology; Visit Provider Urology | DX: Z12.5 Encounter for screening for malignant neoplasm of prostate (principal) | CPT/HCPCS: 36415; 84153; G0103 ==

== ENCOUNTER → 2019-12-11 12:53 | Outpatient (CLI) | payer MEDICARE, OTHER, SELFPAY ==
--- NOTE | 2019-12-11 12:57 | RAD_ITS ---
STUDY: X-RAY - LUMBAR SPINE REASON FOR EXAM: Male, 69 years old. BACK PAIN FOR YEARS. NO KNOWN INJURY. TECHNIQUE: 3 view(s) of the lumbar spine were obtained. COMPARISON: None FINDINGS: There is straightening of the normal lumbar lordosis. There is no substantial scoliosis. There is a normal alignment of the vertebrae. There is multilevel endplate spondylosis of the lumbar vertebrae. There is multi-level degenerative disc disease with multi-level disc space narrowing. There is no demonstrated fracture. The soft tissue structures are unremarkable. RAD/Lumbar Spine 2 or 3 Views IMPRESSION: Multilevel degenerative changes, no acute findings Electronically Signed: Ho Shepard MD at 13:33 EDT , Service support ,
--- NOTE | 2019-12-11 13:00 | RAD_ITS ---
STUDY: X-RAY - CERVICAL SPINE REASON FOR EXAM: Male, 69 years old. BACK PAIN FOR YEARS. NO KNOWN INJURY. TECHNIQUE: 3 view(s) of the cervical spine were obtained. COMPARISON: None FINDINGS: Normal anterior atlantoaxial articulation. Normal odontoid process. Normal cervical lordosis. There is multi-level endplate spondylosis. There is multi-level degenerative disc disease with multilevel disc space narrowing. The soft tissue structures are unremarkable. There is no demonstrated fracture of the cervical spine. RAD/Cerv Spine 2 or 3 Views IMPRESSION: Multilevel degenerative changes, no acute findings Electronically Signed: Ho Shepard MD at 13:33 EDT , Service support ,
== END ==
PROVIDERS: PCP Internal Medicine; Referring Provider Anesthesiology Pain Medicine; Visit Provider Anesthesiology Pain Medicine
DX: M54.9 Dorsalgia, unspecified (principal)
CPT/HCPCS: 72040; 72100

== ENCOUNTER 2020-04-02 09:00 | Outpatient (RCR) | payer MEDICARE, OTHER, SELFPAY ==
--- NOTE | 2020-02-13 08:54 | HP.PTEVAL_ITS ---
Patient's Visit Information MATIAS SCHULZ is a 69 year old M referred to Physical Therapy by Dr. Temi Caceres MD with a diagnosis of Back pain. Date of Evaluation: 02/13/20 Physical Therapist: CHRISTIANO Masterson - Visit Plan Frequency: 2x /Week Duration: 2 Months Plan: 2X/ week for 4-6 weeks for AT for core stability, LE strength including hip and ankle, gait training, general mobility for relief of arthritis pain with HEP or I AT program. - Subjective Pt reports that he has had a bad back for years. He had hip surgery Feb and new knee in Mar and hip surgery on the other side. Now he can stand up straight with the shot he got and that was done in Dec. The first time he has been able to stand up straight for a long time. He has been doing a little hiking. His has HD in the back and spinal stenosis. He is numb on the L thigh. No pain down the legs. No falls. No weakness. He does not limp since the shot. He goes to the chiropractor weekly. The arthritis is bad and the pain and achiness. - Pain back pain Pain Intensity (Out of 10): 0 Pain Intensity Range: 5 Comment: 5 throughout the day - Objective Gait: Pt walks with increase stance time on the L side. He tends to catch his foot with gait. He walks upright but has the first time in years. Trunk AROM: flexion 100%, ext 25%, SB B 75%. LE MMT: Pt is able to walk on heels and toes. Hip abd on the L 4-/5, Hip abd on the R 4/5, 1/2 normal rom bridge, B hip flex 4-/5, B knee flex 4/5 and B knee ext 4/5, B DF 4-/5. Tight gastroc B. Patella DTR's 2+/3 B - Goals Goal 1:: I HEP Goal Time Frame: 4-6 Weeks Goal 2:: Be able to walk 1.5- 2 miles with 2/10 back pain. Goal Time Frame: 4-6 Weeks Goal 3:: Increase B LE strength by 1/2 muscle grade (At time of eval: Pt is able to walk on heels and toes. Hip abd on the L 4-/5, Hip abd on the R 4/5, 1/2 normal rom bridge, B hip flex 4-/5, B knee flex 4/5 and B knee ext 4/5, B DF 4-/5). Goal Time Frame: 4-6 Weeks Goal 4:: Walk with more normal upright gait with no signs of LE weakness and not toe catching on daily basis. Goal Time Frame: 4-6 Weeks - Rehabilitation Potential Rehabilitation Potential: Good - Anticipated Interventions Patient/Client Instruction: Educate patient on: Plan of Care For the Purpose of:: To decrease pain, To increase ROM, To improve nutrient delivery to tissue, To improve muscle performance and motor function, To improve ability to perform ADL's, To increase tolerance to activity/condition/position, To improve performance and independence with ADL's, To improve ability of physical actions for home/community/work/leisure, To improve gait and locomotor functions, To improve health of tissue Therapeutic Exercise to Include: Strength training, Postural training, Gait and locomotor training, Active ROM, Dynamic Lumbar Stabilization, Scapular Strength/Stabilization For the Purpose of:: To decrease pain, To increase ROM, To improve nutrient delivery to tissue, To improve muscle performance and motor function, To improve ability to perform ADL's, To increase tolerance to activity/condition/position, To improve performance and independence with ADL's, To improve ability of physical actions for home/community/work/leisure, To improve gait and locomotor functions, To improve health of tissue, To decrease soft tissue restriction, To increase flexibility/ROM Functional Training to Include: Gait training For the Purpose of:: To improve gait and locomotor functions Thank you for the opportunity to evaluate your patient. For Medicare and Medicare HMO plans, please review the plan of care and approve it. It will need to be FAXED BACK to us at [phone] for Medicare purposes. For Medicare only, by signing this I certify the plan of care. Please let me know if there are questions or concerns regarding this plan of care. Physician Signature: Date:
--- NOTE | 2020-04-02 09:17 | HP.PTDCSUM ---
It has been my pleasure to treat MATIAS SCHULZ referred by Dr. Temi Caceres MD, with the diagnosis of Back pain for a total of 11 visit(s). Discharge Date: 04/02/20 Please see the following information for a summary of their discharge status. Subjective: Pt reports that his back pain is still there and will get another shot in a few weeks but the exercises in the pool helped and give him some relief. He is going to sign up for [employer] sne[employer] to use the pool. The pool gives him relief for the day unless he does something to aggrevate it. Pt feels that he is ready to transition to I program. Pt was able to walk better after his injection... back pain Pain Intensity (Out of 10): 2 RLE Pain Intensity (Out of 10): 3 % Improvement: 25 Objective/Function: Gait: HE still catches his toe with gait more so with his shoes on. LE MMT: B hip flexion 4+/5, B knee ext 5/5, B knee flex 4+/5, B hip abd 4-/5, B hip ext 3+/5. Tight B HS... Goal 1:: I HEP Goal Progress: Goal Met Goal 2:: Be able to walk 1.5- 2 miles with 2/10 back pain. Goal Progress: Progressing Goal 3:: Increase B LE strength by 1/2 muscle grade (At time of eval: Pt is able to walk on heels and toes. Hip abd on the L 4-/5, Hip abd on the R 4/5, 1/2 normal rom bridge, B hip flex 4-/5, B knee flex 4/5 and B knee ext 4/5, B DF 4-/5). Goal Progress: Goal Met Goal 4:: Walk with more normal upright gait with no signs of LE weakness and not toe catching on daily basis. Goal Progress: Progressing Plan: DC PT to [facility]... pt has AT sheet and knows how to sign up with [employer]. Discharge Comments: DC PT to [facility] program If there are questions or concerns regarding this patient's physical therapy, please feel free to call me at [phone]. Thank you for the referral of this patient. Sincerely, Micki Estrada, MPT
== END 2020-04-02 19:00 | disposition home or self-care (01) ==
LOC: PT 09:00
PROVIDERS: PCP Internal Medicine; Referring Provider Anesthesiology Pain Medicine; Visit Provider Anesthesiology Pain Medicine
DX: M54.9 Dorsalgia, unspecified (principal)
CPT/HCPCS: 97113; 97162; 97530

== ENCOUNTER 2020-12-12 18:45 | Emergency (ER) | payer MEDICARE, OTHER, SELFPAY ==
[2020-12-12 18:46] VITALS: BP 147/90; PULSE 91; RESP 16; TEMP 37; O2SAT 94; BMI 27.5
[2020-12-12] MEDS: Diphth,Pertuss(Acell),Tet Vac 0.5 ML Vial IM (20:13)
[2020-12-12] MEDS: Lidocaine 1% (20 ml mdv) 20 ML Vial INFILT (20:14)
--- NOTE | 2020-12-12 20:14 | EDS_ITS ---
HPI History of Present Illness Chief Complaint: Laceration Informant: patient Occured/Mechanism Comment: Cut with kitchen knife Onset/Context/Timing Onset: Today Current Severity: Mild Maximum Severity: Mild Narrative Narrative: Patient presents with left index finger laceration. Patient states he was making dinner and cut his left finger with a kitchen knife. He is unsure of his last tetanus update. [facility] Medical History Diabetes Hypertension Knee pain Home Medications Carvedilol 25 mg PO BID 10/13/15 [History Last Taken 07/14/19] Fish Oil 1,200 mg PO DAILY 10/13/15 [History Last Taken 10/13/15 10:00 1200 MG] Folic Acid 0.4 mg PO DAILY 10/13/15 [History Last Taken Unknown] Tamsulosin HCl 0.4 mg PO DAILY 10/13/15 [History Last Taken Unknown] ascorbic acid (vitamin C) [Vitamin C] 1,000 mg PO DAILY 10/13/15 [History Last Taken 10/13/15 08:00 1000 MG] cyanocobalamin (vitamin B-12) 500 mcg PO DAILY 10/13/15 [History Last Taken 10/13/15 10:00 1000 MCG] felodipine 10 mg PO DAILY 10/13/15 [History Last Taken 10/13/15 10:00 10 MG] finasteride 5 mg PO DAILY 10/13/15 [History Last Taken 10/13/15 08:00 5 MG] lisinopril 40 mg PO DAILY 10/13/15 [History Last Taken 07/14/19] pyridoxine (vitamin B6) 100 mg PO DAILY 10/13/15 [History Last Taken 10/13/15 10:00 100 MG] amlodipine 10 mg PO DAILY 04/11/19 [History Last Taken 07/14/19] phenazopyridine 100 mg PO TID #14 tab 07/14/19 [Rx Last Taken Unknown] benzonatate 100 mg capsule 200 mg PO TID PRN #30 cap 12/09/20 [Rx Last Taken Unknown] Allergy/AdvReac Type Severity Reaction Status Date / Time No Known Allergies Allergy Verified 12/12/20 18:46 Surgical History H/O knee surgery History of carpal tunnel surgery History of hip surgery Social History Smoking Status: Former smoker ROS ROS ED Constitutional Constitutional ED: Denies chills or fever(s) ENT ENT ED: Denies sore throat Cardiovascular Cardiovascular: Denies chest pain Respiratory/Chest Respiratory/Chest: Denies cough or dyspnea Gastrointestinal Gastrointestinal: Denies abdominal pain, diarrhea, nausea or vomiting Genitourinary Genitourinary ED: Denies dysuria Musculoskeletal Musculoskeletal: Reports other Details: Left index finger pain ; Denies back pain Integumentary Reports other Details: Laceration ; Denies rash Neurologic Neurologic: Denies headache(s), paresthesias or weakness Allergic/Immunologic Allergic/Immunologic ED: Denies urticaria EXAM Physical Exam Const Vital Signs: 12/12/20 18:46 Temperature 98.6 F Temperature Source Temporal Pulse Rate 91 Respiratory Rate 16 Blood Pressure 147/90 H Blood Pressure Mean 109 Pulse Ox 94 Oxygen Delivery Method Room Air Positive well nourished and well developed General Appearance ED: well developed HEENT normocephalic and atraumatic Eyes PERRL and EOMs intact bilaterally Neck supple Resp normal respiratory effort and clear to auscultation bilaterally Cardio regular rate and regular rhythm Extremity Extremity Narrative: 1 cm flap laceration over the distal phalanx of the left index finger. Good cap refill distally and normal sensation. Full range of motion. Neuro oriented x3, no focal motor deficits and no sensory deficits noted Sensorium / Orientation: alert Psych mental status grossly normal MDM MDM MDM Narrative Medical decision making narrative: Tetanus update provided. Treatment and Re-Evaluation Comments:: Digital block was performed and wound is sutured. Please see procedure note for details. Patient is to have sutures removed in 1 week. Procedures Lacerations Left index finger: Length: 0.39 in Depth: Sub Q Shape: Flap Laceration repair: Digital block, Irrigated and Lidocaine Number of Sutures/Adria: 6 Suture Information: Ethilon, Simple and 5-0 Comment: 2 cc 1% lidocaine used for digital block. Wound is cleansed and irrigated. 6 simple entered sutures of 5-0 nylon placed with good approxi mation. Discharge Plan Triage Chief Complaint: Laceration ED Provider: Elmira Leung Dx/Rx/DC Orders Clinical Impression: Laceration of finger, index Instructions: ED Laceration, Hand: All Closures Prescriptions: No Action benzonatate 100 mg capsule 200 mg PO TID PRN (Reason: cough) Qty: 30 RF: 0 cyanocobalamin (vitamin B-12) 1,000 MCG tablet extended release 500 mcg PO DAILY RF: 0 ascorbic acid (vitamin C) [Vitamin C] 500 MG tablet 1,000 mg PO DAILY RF: 0 pyridoxine (vitamin B6) 50 MG tablet 100 mg PO DAILY RF: 0 felodipine 10 MG tablet extended release 24 hr 10 mg PO DAILY RF: 0 lisinopril 40 MG tablet 40 mg PO DAILY RF: 0 finasteride 5 MG tablet 5 mg PO DAILY RF: 0 Fish Oil 300 MG capsule 1,200 mg PO DAILY RF: 0 Carvedilol 25 mg PO BID RF: 0 Folic Acid 0.4 MG tablet 0.4 mg PO DAILY RF: 0 Tamsulosin HCl 0.4 mg PO DAILY RF: 0 amlodipine 10 MG tablet 10 mg PO DAILY RF: 0 phenazopyridine 100 MG tablet 100 mg PO TID Qty: 14 RF: 0 Primary Care Provider: Mateo Portillo Referrals: Bruce Rossi MD [STAFF PHYSICIAN] - 7 Days for suture removal Disposition Disposition: Home, Self Care Discharge Date/Time: 12/12/20 20:31
[2020-12-12 20:24] VITALS: BP 127/81; PULSE 82; RESP 18; O2SAT 95
== END 2020-12-12 20:31 | disposition home or self-care (01) ==
LOC: ED 20:21
PROVIDERS: Emergency Provider Emergency Medicine
DX: S61.211A Laceration without foreign body of left index finger without damage to nail, initial encounter (principal); W26.0XXA Contact with knife, initial encounter; E11.9 Type 2 diabetes mellitus without complications; I10 Essential (primary) hypertension; Z87.891 Personal history of nicotine dependence; Z23 Encounter for immunization
CPT/HCPCS: 12001; 90471; 90715; 99284

== ENCOUNTER 2021-08-06 09:50 | Emergency (ER) | payer MEDICARE, OTHER, SELFPAY ==
[2021-08-06 09:53] VITALS: BP 110/73; PULSE 83; RESP 14; TEMP 36.7; O2SAT 100; BMI 27.4
[2021-08-06 10:16] VITALS: BP 119/87; PULSE 77; RESP 11; O2SAT 98
--- NOTE | 2021-08-06 10:41 | EKG12_ITS ---
Test Reason : PALPS Blood Pressure : / mmHG Vent. Rate : 085 BPM Atrial Rate : 078 BPM P-R Int : 000 ms QRS Dur : 096 ms QT Int : 348 ms P-R-T Axes : 000 -23 021 degrees QTc Int : 414 ms Atrial fibrillation Abnormal ECG Confirmed by MARLON WATTERS, PRISCILA ([id number]), editorial specialist FELIPA MOTT ([id number]) on 08/08/2021 12:54:19 P M Referred By: MILTON/JOSH Confirmed By:CAMELIA MASON MD
[2021-08-06 10:51] LABS: Absolute Lymphocyte Count 1.25 X10^3/uL (0.83-4.51); Absolute Neutrophil Count 5.7 X10^3/uL (2.0-7.7); Basophil# 0.04 X10^3/uL; Basophil% 0.5 % (0-1); Eosinophil# 0.09 X10^3/uL; Eosinophils% 1.2 % (0-5); Hemoglobin 14.1 g/dL (13.0-16.5); Lymphocyte # 1.25 X10^3/ul (0.83-4.51); Lymphocyte % 16.3 % (19-41); Mean Corp Hgb Conc 33.6 g/dL (32-36); Mean Corpuscular Hgb 31.3 pg (27.0-32.0); Mean Corpuscular Volume 93.1 fL (80-94); Mean Platelet Vol. 10.4 fl (6.2-12.0); Monocyte# 0.62 X10^3/uL; Monocyte% 8.1 % (0-10); NRBC Flagged by Analyzer 0 % (0-5); Neutrophil # 5.66 X10^3/uL (2.7-7.7); Neutrophil % 73.5 % (47-70); Platelet Count 171 K/mm3 (150-450); RBC Distribution Width CV 12.1 % (11.6-14.6); RBC Distribution Width SD 41.5 fl (35.1-43.9); Red Blood Count 4.51 M/mm3 (4.6-6.2); White Blood Count 7.7 K/mm3 (4.4-11.0)
--- NOTE | 2021-08-06 11:05 | EDS_ITS ---
HPI History of Present Illness Chief Complaint: Palpitations Informant: patient Narrative Narrative: Patient presents after discussed with PCP for evaluation, has no abnormal heart rhythm for the past 2 to 3 days especially when he sleeps at night. He states he had atrial fibrillation with cardioversion over 2 years ago followed by [facility] cardiology DrBrielle (Areli). He was taken off anticoagulation afterwards. He did not like the bruising. He states this feels a little different. Denies lightheaded symptoms. Denies recent illness or cough. Denies nausea or vomiting. He discussed with his PCP he was told to come here he does have a cardiology appointment. This coming Wednesday.. Reports history of hypertension, denies any diabetes history. Denies stroke history. Denies heart failure history. Prior similar symptoms: Yes PFSH PFSH Medical History Diabetes Hypertension Knee pain Home Medications Carvedilol 25 mg PO BID 10/13/15 [History Last Taken 07/14/19] Fish Oil 1,200 mg PO DAILY 10/13/15 [History Last Taken 10/13/15 10:00 1200 MG] Folic Acid 0.4 mg PO DAILY 10/13/15 [History Last Taken Unknown] Tamsulosin HCl 0.4 mg PO DAILY 10/13/15 [History Last Taken Unknown] ascorbic acid (vitamin C) [Vitamin C] 1,000 mg PO DAILY 10/13/15 [History Last Taken 10/13/15 08:00 1000 MG] cyanocobalamin (vitamin B-12) 500 mcg PO DAILY 10/13/15 [History Last Taken 10/13/15 10:00 1000 MCG] felodipine 10 mg PO DAILY 10/13/15 [History Last Taken 10/13/15 10:00 10 MG] finasteride 5 mg PO DAILY 10/13/15 [History Last Taken 10/13/15 08:00 5 MG] lisinopril 40 mg PO DAILY 10/13/15 [History Last Taken 07/14/19] pyridoxine (vitamin B6) 100 mg PO DAILY 10/13/15 [History Last Taken 10/13/15 10:00 100 MG] amlodipine 10 mg PO DAILY 04/11/19 [History Last Taken 07/14/19] phenazopyridine 100 mg PO TID #14 tab 07/14/19 [Rx Last Taken Unknown] benzonatate 100 mg capsule 200 mg PO TID PRN #30 cap 12/09/20 [Rx Last Taken Unknown] apixaban [Eliquis] 5 mg PO BID #60 tab 08/06/21 [Rx Last Taken Unknown] Allergy/AdvReac Type Severity Reaction Status Date / Time No Known Allergies Allergy Verified 08/06/21 09:54 Surgical History H/O knee surgery History of carpal tunnel surgery History of hip surgery Social History Smoking Status: Former smoker ROS ROS ED Constitutional Constitutional ED: Denies chills, fever(s) or sweats Eyes Eyes: Denies change in vision ENT ENT ED: Denies dysphagia or sore throat Cardiovascular Cardiovascular: Reports palpitations; Denies chest pain, leg edema or racing heartbeat Respiratory/Chest Respiratory/Chest: Denies cough, dyspnea or dyspnea on exertion Gastrointestinal Gastrointestinal: Denies abdominal pain, diarrhea, nausea or vomiting Genitourinary Genitourinary ED: Denies dysuria, hematuria or urinary frequency Musculoskeletal Musculoskeletal: Denies back pain, extremity pain or neck pain Integumentary Denies rash or wounds Neurologic Neurologic: Denies headache(s), paresthesias or weakness EXAM Physical Exam Const Vital Signs: 08/06/21 09:53 08/06/21 10:13 08/06/21 10:16 Temperature 98.0 F Temperature Source Temporal Pulse Rate 83 77 Respiratory Rate 14 11 L Respiratory Effort Normal Non-Labored Respiratory Pattern Blood Pressure 110/73 119/87 H Blood Pressure Mean 85 97 Pulse Ox 100 98 Oxygen Delivery Method Room Air Room Air 08/06/21 10:17 08/06/21 11:59 Temperature Temperature Source Pulse Rate 79 Respiratory Rate 16 Respiratory Effort Normal Non-Labored Respiratory Pattern Normal Blood Pressure 119/69 Blood Pressure Mean Pulse Ox 97 Oxygen Delivery Method Positive well nourished and well developed General Appearance ED: well developed and NAD HEENT Reports moist mucous membranes normocephalic and atraumatic Eyes PERRL, EOMs intact bilaterally and conjunctivae normal General Eye ED: Yes normal appearance of both eyes Neck no lymphadenopathy and supple General: Negative for tenderness Chest Wall Chest: Negative for tenderness Resp normal respiratory effort and normal air movement Effort and Inspection: symmetric chest movement; Negative for respiratory distress Cardio regular rate and no murmurs Rhythm: abnormal rhythm Peripheral Pulses: pulses 2+ throughout GI normal to inspection, nondistended, normoactive bowel sounds and non-tender Palpation: Negative for guarding or rebound tenderness present Back/Spine no CVA tenderness and no thoracic nor lumbar tenderness Extremity normal to inspection General Extremety ED: Negative for edema or tenderness General Extremity: Negative for edema Neuro oriented x3 and no sensory deficits noted Sensorium / Orientation: awake and alert Skin no rashes or lesions noted and no wounds MDM MDM MDM Narrative Medical decision making narrative: Patient rate controlled atrial fibrillation at this time blood pressure stable. [id number] score is a 2. He feels more the palpitations at night. Labs are all stable. Remains rate controlled. He started on Eliquis in the ED. Month supply written, and he will follow-up with his machine cloth examiner as scheduled on Wednesday for possible intervention as an outpatient. All questions were answered. Lab Data Attestation: I reviewed the patient's lab results. Labs: Laboratory Results - last 24 hr 08/06/21 08/06/21 10:09 10:09 WBC 7.7 RBC 4.51 L Hgb 14.1 Hct 42.0 MCV 93.1 MCH 31.3 MCHC 33.6 RDW Std Deviation 41.5 RDW Coeff of Terrance 12.1 Plt Count 171 MPV 10.4 Immature Gran % (Auto) 0.400 Neut % (Auto) 73.5 H Lymph % (Auto) 16.3 L Bell % (Auto) 8.1 Eos % (Auto) 1.2 Baso % (Auto) 0.5 Absolute Neuts (auto) 5.7 Absolute Lymphs (auto) 1.25 Nucleated RBC % 0 Sodium 141 Potassium 3.8 Chloride 112 H Carbon Dioxide 23.0 Anion Gap 6 BUN 20 H Creatinine 0.92 Estim Creat Clear Calc 69.18 Est GFR (MDRD) Af Amer 104 Est GFR (MDRD) Non-Af 86 BUN/Creatinine Ratio 21.7 H Glucose 152 H Calcium 8.8 EKG Initial EKG: Attestation: I personally reviewed and interpreted this EKG as follows: Comments: Rate controlled atrial fibrillation 85, no ST or T wave changes. Discharge Plan Triage Chief Complaint: Palpitations ED Provider: Le,Bobby Dx/Rx/DC Orders Clinical Impression: Atrial fibrillation, controlled, Palpitation Instructions: ED AFIB Prescriptions: New Eliquis 5 mg tablet 5 mg PO BID Qty: 60 RF: 0 No Action benzonatate 100 mg capsule 200 mg PO TID PRN (Reason: cough) Qty: 30 RF: 0 cyanocobalamin (vitamin B-12) 1,000 MCG tablet extended release 500 mcg PO DAILY RF: 0 ascorbic acid (vitamin C) [Vitamin C] 500 MG tablet 1,000 mg PO DAILY RF: 0 pyridoxine (vitamin B6) 50 MG tablet 100 mg PO DAILY RF: 0 felodipine 10 MG tablet extended release 24 hr 10 mg PO DAILY RF: 0 lisinopril 40 MG tablet 40 mg PO DAILY RF: 0 finasteride 5 MG tablet 5 mg PO DAILY RF: 0 Fish Oil 300 MG capsule 1,200 mg PO DAILY RF: 0 Carvedilol 25 mg PO BID RF: 0 Folic Acid 0.4 MG tablet 0.4 mg PO DAILY RF: 0 Tamsulosin HCl 0.4 mg PO DAILY RF: 0 amlodipine 10 MG tablet 10 mg PO DAILY RF: 0 phenazopyridine 100 MG tablet 100 mg PO TID Qty: 14 RF: 0 Primary Care Provider: Mateo Portillo Referrals: Mateo Portillo [Primary Care Provider] - Activity Restrictions/Additional Instructions: You have recurrent atrial fibrillation rate controlled. Continue your home medications especially your carvedilol. Take Eliquis as prescribed. Keep your follow-up on Wednesday with your machine cloth examiner. Disposition Disposition: Home, Self Care Discharge Date/Time: 08/06/21 12:20
[2021-08-06 11:06] LABS: Anion Gap 6 (5-15); BUN 20 mg/dL (7-18); BUN/Creat Ratio 21.7 RATIO (10-20); Calcium,Total 8.8 mg/dL (8.5-10.1); Chloride 112 mmol/L (98-107); Creatinine, Serum 0.92 mg/dL (0.70-1.30); EST Glomerular Filtration Rate 86 mL/min (>60); Est Glom Filt Rate - Afr Amer 104 mL/min (>60); Estimated Creatinine Clearance 69.18 ml/min; Glucose 152 mg/dL (74-106); Potassium 3.8 mmol/L (3.5-5.1); Sodium Level 141 mmol/L (136-145)
[2021-08-06] MEDS: APIXABAN 5 MG TABLET PO (11:34)
[2021-08-06 11:59] VITALS: BP 119/69; PULSE 79; RESP 16; O2SAT 97
== END 2021-08-06 12:20 | disposition home or self-care (01) ==
PROVIDERS: Emergency Provider Emergency Medicine; Visit Provider Emergency Medicine
DX: I48.91 Unspecified atrial fibrillation (principal); E11.9 Type 2 diabetes mellitus without complications; Z87.891 Personal history of nicotine dependence; R00.2 Palpitations; I10 Essential (primary) hypertension
CPT/HCPCS: 80048; 85025; 93005; 99284

== ENCOUNTER → 2022-01-22 | Outpatient (CLI) | payer MEDICARE, OTHER, SELFPAY ==
--- NOTE | 2022-01-22 11:00 | RAD_ITS ---
EXAM: XR ABDOMEN, 1 VIEW CLINICAL INDICATION: KIDNEY STONE TECHNIQUE: Frontal supine view of the abdomen/pelvis. This report was created using [employer] report generation technology. COMPARISON: None. FINDINGS: LOWER THORAX: No acute pathology. GASTROINTESTINAL TRACT: Unremarkable. Non-obstructive. No bowel or stomach distention. ORGANS: There is a calcification overlying the lower pole of the left kidney. No organomegaly. BONES/JOINTS: There are bilateral hip prostheses. SOFT TISSUES: No acute pathology. RAD/Abdomen Single View IMPRESSION: Left lower pole renal calculus. 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 There is a nonobstructive bowel gas pattern. Electronically Signed: Jeancarlos Calderón MD at 11:27 EDT ,
== END | disposition home or self-care (01) ==
LOC: RAD 10:58
PROVIDERS: Referring Provider Registered Nurse; Visit Provider Registered Nurse
DX: N20.9 Urinary calculus, unspecified (principal)
CPT/HCPCS: 74018

== ENCOUNTER → 2022-05-19 | Outpatient (CLI) | payer MEDICARE, OTHER, SELFPAY ==
--- NOTE | 2022-05-19 14:30 | RAD_ITS ---
STUDY: X-RAY - ABDOMEN/PELVIS REASON FOR EXAM: Male, 71 years old. CALCULUS OF KIDNEY TECHNIQUE: Single AP view of the abdomen / pelvis. COMPARISON: January 22, 2022 FINDINGS: Normal visualized lung bases. There is an unremarkable bowel gas pattern. 3 x 6 mm nephrolith on the left unchanged. The visualized liver, spleen and kidneys are grossly normal in size and morphology. Normal soft tissue structures. Bilateral hip arthroplasties. Mild scoliosis and spondylosis. RAD/Abdomen Single View IMPRESSION: Left nephrolithiasis unchanged Electronically Signed: Augustine Pace MD at 20:44 EST ,
== END | disposition home or self-care (01) ==
LOC: RAD 14:14
PROVIDERS: Referring Provider Urology; Visit Provider Urology
DX: N20.0 Calculus of kidney (principal)
CPT/HCPCS: 74018

== ENCOUNTER 2022-12-25 15:33 | Emergency (ER) | payer MEDICARE, OTHER, SELFPAY ==
[2022-12-25 15:34] VITALS: BP 138/77; PULSE 82; RESP 16; TEMP 36.8; O2SAT 98; BMI 25.6
--- NOTE | 2022-12-25 17:01 | EX.ED.UPPERE ---
HPI History of Present Illness Chief Complaint: Upper Extremity Injury Detail of Chief Complaint: Fractured elbow Informant: patient Occured/Mechanism Mechanism/Context: Yes fall Comment: Patient was hiking in [place]. He slipped. He injured his left elbow. This occurred approximately week ago. Onset/Context/Timing Context: Sudden Onset Timing: Continuous Quality of Pain: Dull Location: Left elbow Worsened by: Anticoagulant Relieved by: Patient with minimal pain at this time Associated Symptoms Associated Symptoms: Positive for - (Patient's range of motion is limited in); Negative for Parasthesia or Weakness Narrative Narrative: Patient is a 72-year-old male with history of atrial fibrillation status post ablation on anticoagulant who presents because of abnormal x-ray. He said something was twisted. Images were performed at outside facility. Patient denies paresthesia, anesthesia or motor weakness. He is right-hand dominant. He denies head trauma. Nuys loss of conscious. Nuys neck pain. Nuys cardiac or respiratory symptoms. Prior similar symptoms: No Recent Illness/Hospitalization: No PFSH PFS Medical History (Updated 12/25/22 @ 17:[address] Baldev Freedman MD) Atrial fibrillation Diabetes Hypertension Knee pain Home Medications Carvedilol 25 mg PO BID BP 10/13/15 [History Last Taken 07/14/19] Folic Acid 0.4 mg PO DAILY SUPPLEMENT 10/13/15 [History Last Taken Unknown] Tamsulosin HCl 0.4 mg PO DAILY URINATION 10/13/15 [History Last Taken Unknown] ascorbic acid (vitamin C) 500 mg tablet (Vitamin C) 1,000 mg PO DAILY SUPPLEMENT 10/13/15 [History Last Taken 10/13/15 08:00 1000 MG] cyanocobalamin (vitamin B-12) 1,000 mcg tablet,extended release 500 mcg PO DAILY SUPPLEMENT 10/13/15 [History Last Taken 10/13/15 10:00 1000 MCG] felodipine 10 mg tablet,extended release 24 hr 10 mg PO DAILY BP 10/13/15 [History Last Taken 10/13/15 10:00 10 MG] finasteride 5 mg tablet 5 mg PO DAILY URINATION 10/13/15 [History Last Taken 10/13/15 08:00 5 MG] lisinopril 40 mg tablet 40 mg PO DAILY bp 10/13/15 [History Last Taken 07/14/19] omega-3 fatty acids 300 mg capsule (Fish Oil) 1,200 mg PO DAILY SUPPLEMENT 10/13/15 [History Last Taken 10/13/15 10:00 1200 MG] pyridoxine (vitamin B6) 50 mg tablet 100 mg PO DAILY SUPPLEMENT 10/13/15 [History Last Taken 10/13/15 10:00 100 MG] amlodipine 10 mg tablet 10 mg PO DAILY BP 04/11/19 [History Last Taken 07/14/19] phenazopyridine 100 mg tablet 100 mg PO TID #14 tabs 07/14/19 [Rx Last Taken Unknown] benzonatate 100 mg capsule 200 mg (2 x 100 mg) PO TID PRN cough #30 caps 12/09/20 [Rx Last Taken Unknown] apixaban 5 mg tablet (Eliquis) 5 mg PO BID #60 tabs 08/06/21 [Rx Last Taken Unknown] hydrocodone-acetaminophen 5-325mg 5mg-325mg 1 tab PO Q6H PRN PRN Pain 3 days #10 TABLETS 12/25/22 [Rx Last Taken Unknown] Allergy/AdvReac Type Severity Reaction Status Date / Time No Known Allergies Allergy Verified 12/25/22 15:33 Surgical History (Updated 12/25/22 @ 17:[address] Baldev Freedman MD) H/O knee surgery History of carpal tunnel surgery History of hip surgery Social History (Updated 12/25/22 @ 17:[address] Baldev Freedman MD) household members: spouse Smoking Status: Former smoker substance use type: does not use ROS ROS ED Constitutional Constitutional ED: Denies chills, fever(s) or subjective Eyes Eyes: Denies blurry vision or change in vision Cardiovascular Cardiovascular: Denies chest pain or palpitations Respiratory/Chest Respiratory/Chest: Denies cough or dyspnea Gastrointestinal Gastrointestinal: Denies abdominal pain, nausea or vomiting Musculoskeletal Musculoskeletal: Denies back pain or neck pain Integumentary Denies Abrasions or rash Neurologic Neurologic: Denies headache(s), paresthesias or weakness Hematologic/Lymphatic Hematologic/Lymphatic: Denies easy bleeding or easy bruising EXAM Physical Exam Const Vital Signs: 12/25/22 15:34 Temperature 98.3 F Temperature Source Temporal Pulse Rate 82 Respiratory Rate 16 Blood Pressure 138/77 H Blood Pressure Mean 97 Pulse Ox 98 Positive well nourished and well developed General Appearance ED: well developed and NAD HEENT Reports moist mucous membranes normocephalic and atraumatic Eyes PERRL and EOMs intact bilaterally Eyes Narrative: There is no scleral icterus. Patient does have a contusion proximity of the right brow. Patient states this does not occur while he was jumping on the trampoline. Neck full ROM and supple Chest Wall inspection of chest normal and palpation of chest normal Resp normal respiratory effort and clear to auscultation bilaterally Cardio regular rhythm, S1 normal heart sound, S2 normal heart sound and no murmurs Rate: tachycardic GI non-tender, non-distended and no masses Back/Spine no CVA tenderness Extremity Negative for normal to inspection Extremity Narrative: Swelling with fluid collection consistent with olecranon bursitis left elbow. There is marked bruising noted since he is on anticoagulant. There is no pain ovation of the proximal humerus. No pain the patient over the distal radius, carpal bones or metacarpal bones. Axillary, median, radial and ulnar function intact. Pulses palpable. Neuro oriented x3, CN's II-XII intact bilaterally, moves all extremities, no focal motor deficits and no sensory deficits noted Neuro Narrative: Median, radial and ulnar function intact. Psych mental status grossly normal Skin Skin Narrative: There is significant bruising of his arm and forearm. General Skin Exam: Negative for petechiae Lesions: no lesions Rashes: no rashes Trauma: Negative for no lacerations or abrasions MDM MDM MDM Narrative Medical decision making narrative: Patient is performed at outside facility were obtained through shared system by radiology. Patient has a displaced intra-articular olecranon fracture. Case was discussed with Dr. Edwin person. Patient was placed in a long-arm posterior splint using Ortho-Glass. He also was given a sling. He is to contact Dr. Edwin Luu office tomorrow for appointment this coming week and will require open reduction internal fixation. Procedures Upper Extremity Splints Upper Extremity Splint: Orthoglass and - (Posterior long-arm) Splint Fabrication: Fabricated Discharge Plan Triage Chief Complaint: Upper Extremity Injury ED Provider: Baldev Freedman Dx/Rx/DC Orders Clinical Impression: Displaced fracture of olecranon process with intraarticular extension of left ulna, initial encounter for closed fracture, HTN (hypertension), Anticoagulant long-term use Instructions: ED Elbow Fracture Prescriptions: New hydrocodone-acetaminophen [hydrocodone-acetaminophen] 5-325 mg tablet 1 tab PO Q6H PRN PRN (Reason: Pain) 3 Days Qty: 10 0RF No Action benzonatate 100 mg capsule 200 mg PO TID PRN (Reason: cough) Qty: 30 0RF cyanocobalamin (vitamin B-12) 1,000 MCG tablet extended release 500 mcg PO DAILY Patient Comments: SUPPLEMENT ascorbic acid (vitamin C) [Vitamin C] 500 MG tablet 1,000 mg PO DAILY Patient Comments: SUPPLEMENT pyridoxine (vitamin B6) 50 MG tablet 100 mg PO DAILY Patient Comments: SUPPLEMENT felodipine 10 MG tablet extended release 24 hr 10 mg PO DAILY Patient Comments: HIGH BLOOD PRESSURE lisinopril 40 MG tablet 40 mg PO DAILY Patient Comments: BLOOD PRESSURE finasteride 5 MG tablet 5 mg PO DAILY Patient Comments: PROSTATE Fish Oil 300 MG capsule 1,200 mg PO DAILY Patient Comments: SUPPLEMENT Carvedilol 25 mg PO BID Patient Comments: HEART Folic Acid 0.4 MG tablet 0.4 mg PO DAILY Patient Comments: SUPPLEMENT Tamsulosin HCl 0.4 mg PO DAILY Patient Comments: URINE FLOW amlodipine 10 MG tablet 10 mg PO DAILY phenazopyridine 100 MG tablet 100 mg PO TID Qty: 14 0RF Eliquis 5 mg tablet 5 mg PO BID Qty: 60 0RF Primary Care Provider: Mateo Portillo Referrals: Kulwinder Berumen DO [Med Staff - Active Staff] - As soon as possible Mateo Portillo MD [Primary Care Provider] - Disposition Disposition: Home, Self Care
[2022-12-25 17:20] VITALS: BP 134/78; PULSE 78; RESP 14; TEMP 37.1; O2SAT 99
== END 2022-12-25 17:28 | disposition home or self-care (01) ==
PROVIDERS: Emergency Provider Emergency Medicine; PCP Family Medicine; Visit Provider Emergency Medicine
DX: S52.032A Displaced fracture of olecranon process with intraarticular extension of left ulna, initial encounter for closed fracture (principal); I48.91 Unspecified atrial fibrillation; E11.9 Type 2 diabetes mellitus without complications; Z87.891 Personal history of nicotine dependence; Z79.01 Long term (current) use of anticoagulants; I10 Essential (primary) hypertension; Z79.899 Other long term (current) drug therapy; Y93.01 Activity, walking, marching and hiking; W19.XXXA Unspecified fall, initial encounter; Y92.89 Other specified places as the place of occurrence of the external cause
CPT/HCPCS: 29105; 29125; 99283

== ENCOUNTER 2023-01-05 13:00 | Day surgery (SDC) | payer MEDICARE, OTHER, SELFPAY ==
--- NOTE | 2023-01-01 09:14 | EKG12_ITS ---
Test Reason : PREOP Blood Pressure : / mmHG Vent. Rate : 064 BPM Atrial Rate : 064 BPM P-R Int : 184 ms QRS Dur : 084 ms QT Int : 390 ms P-R-T Axes : 038 -29 -11 degrees QTc Int : 402 ms Normal sinus rhythm Normal ECG Confirmed by MITCHEL WATTERS, JUDSON ([id number]), marketing editor TOBIAS MULLEN ([id number]) on 01/11/2023 7:37:48 AM Referred By: Nick Proctor Confirmed By:JUDSON GRULLON MD
--- NOTE | 2023-01-01 09:15 | RAD_ITS ---
EXAM: XR CHEST, 2 VIEWS CLINICAL INDICATION: PRE OP TECHNIQUE: Frontal and lateral views of the chest. COMPARISON: Abdominal radiograph, 05/19/2022 FINDINGS: LUNGS AND PLEURAL SPACES: No significant abnormality. No consolidation or edema. No pneumothorax. No effusion. HEART: No significant abnormality. Cardiac silhouette not enlarged. MEDIASTINUM: Central airways and mediastinal contour are unremarkable. BONES/JOINTS: Degenerative changes of the spine and shoulders. SOFT TISSUES: No significant abnormality. VASCULATURE: Atherosclerosis. RAD/Chest PA and Lateral IMPRESSION: No acute findings in the chest. Electronically Signed: Vladimir Jurado DO at 20:15 EDT ,
[2023-01-01 09:35] LABS: Absolute Lymphocyte Count 1.14 X10^3/uL (0.83-4.51); Absolute Neutrophil Count 3.2 X10^3/uL (2.0-7.7); Basophil# 0.02 X10^3/uL; Basophil% 0.4 % (0-1); Hematocrit 40.4 % (40-54); Hemoglobin 13.3 g/dL (13.0-16.5); Lymphocyte # 1.14 X10^3/ul (0.83-4.51); Lymphocyte % 23.3 % (19-41); Mean Corp Hgb Conc 32.9 g/dL (32-36); Mean Corpuscular Hgb 31.8 pg (27.0-32.0); Mean Corpuscular Volume 96.7 fL (80-94); Mean Platelet Vol. 9.6 fl (6.2-12.0); Monocyte# 0.43 X10^3/uL; Monocyte% 8.8 % (0-10); NRBC Flagged by Analyzer 0 % (0-5); Neutrophil # 3.19 X10^3/uL (2.7-7.7); Neutrophil % 65.3 % (47-70); Platelet Count 204 K/mm3 (150-450); RBC Distribution Width CV 12.5 % (11.6-14.6); RBC Distribution Width SD 44.4 fl (35.1-43.9); Red Blood Count 4.18 M/mm3 (4.6-6.2); White Blood Count 4.9 K/mm3 (4.4-11.0)
[2023-01-01 10:00] LABS: Anion Gap 4 (5-15); BUN 11 mg/dL (7-18); BUN/Creat Ratio 13.1 RATIO (10-20); Calcium,Total 9.1 mg/dL (8.5-10.1); Chloride 109 mmol/L (98-107); Creatinine, Serum 0.84 mg/dL (0.70-1.30); EST Glomerular Filtration Rate 95 mL/min (>60); Est Glom Filt Rate - Afr Amer 115 mL/min (>60); Glucose 117 mg/dL (74-106); Potassium 3.8 mmol/L (3.5-5.1); Sodium Level 139 mmol/L (136-145)
[2023-01-01 11:10] LABS: Hemoglobin A1c 5.4 % (3.8-5.6)
[2023-01-05 13:25] VITALS: BP 141/73; PULSE 70; RESP 16; TEMP 36.4; O2SAT 100; BMI 26.2
[2023-01-05] MEDS: Lactated Ringers 1,000 ML 15 ML IV (13:32)
--- NOTE | 2023-01-05 14:00 | RAD_ITS ---
STUDY: X-RAY - LEFT ELBOW REASON FOR EXAM: Male, 72 years old. FX TECHNIQUE: 2 intraoperative view(s) of the elbow. COMPARISON: None. FINDINGS: 2 limited intraoperative views of the elbow performed as the patient has undergone open reduction internal fixation of a proximal ulnar fracture. Alignment is anatomic, follow-up recommended to ensure complete osseous union RAD/Elbow 2 Views IMPRESSION: Anatomic alignment of a surgically reduced fracture in the proximal ulna. Follow-up recommended to ensure complete osseous union. No intraoperative complications Electronically Signed: Ho Shepard MD at 16:42 EDT ,
[2023-01-05] MEDS: Cefazolin 2 GM in 0.9% Normal Saline (100mL Bag) 100 ML IV (14:08)
[2023-01-05] MEDS: Vancomycin IV 1,000 MG/20 ML Vial OPERA.SITE (15:31)
[2023-01-05] MEDS: Bupivacaine Mpf 0.5% 30 ML VIAL (15:38)
[2023-01-05] MEDS: Lidocaine 1% /Epi 1:100 (20ml) 20 ML Vial (15:38)
[2023-01-05 16:11] VITALS: BP 117/69; BP 141/73; PULSE 60; RESP 16; TEMP 36.7; O2SAT 93
[2023-01-05 16:15] VITALS: BP 110/70; BP 141/73; PULSE 73; RESP 16; O2SAT 100
--- NOTE | 2023-01-05 16:21 | DCINST_ITS ---
Discharge Instructions Follow Up Care Test Results: Test results from this visit will be discussed in further detail at your follow- up appointment, if applicable. Discharge Plan Admission Attending Provider: Nick Proctor Primary Care Provider: Mateo Portillo Instructions Additional Instructions / Restrictions: Follow preprinted instructions from your surgeons office. Restart home Xarelto evening of 01/05/2023 Continue antibiotics upon discharge as prescribed Discharge Orders/Prescriptions Prescriptions: No Action cyanocobalamin (vitamin B-12) 1,000 MCG tablet extended release 500 mcg PO DAILY Patient Comments: SUPPLEMENT ascorbic acid (vitamin C) [Vitamin C] 500 MG tablet 1,000 mg PO DAILY Patient Comments: SUPPLEMENT pyridoxine (vitamin B6) 50 MG tablet 100 mg PO DAILY Patient Comments: SUPPLEMENT felodipine 10 MG tablet extended release 24 hr 10 mg PO DAILY Patient Comments: HIGH BLOOD PRESSURE lisinopril 40 MG tablet 40 mg PO DAILY Patient Comments: BLOOD PRESSURE finasteride 5 MG tablet 5 mg PO DAILY Patient Comments: PROSTATE Fish Oil 300 MG capsule 1,200 mg PO DAILY Patient Comments: SUPPLEMENT Carvedilol 25 mg PO BID Patient Comments: HEART Folic Acid 0.4 MG tablet 0.4 mg PO DAILY Patient Comments: SUPPLEMENT Tamsulosin HCl 0.4 mg PO DAILY Patient Comments: URINE FLOW amlodipine 10 MG tablet 10 mg PO DAILY hydrocodone-acetaminophen [hydrocodone-acetaminophen] 5-325 mg tablet 1 tab PO Q6H PRN PRN (Reason: Pain) 3 Days Qty: 10 0RF Xarelto 20 mg tablet 20 mg PO DAILY Patient Comments: WILL STOP TAKING 3 DAYS BEFORE SURGERY Rx Instructions: must administer with evening meal Referrals / Follow Up: Nick Proctor DO [Med Staff - Active Staff] - Mateo Portillo MD [Primary Care Provider] - Disposition Disposition (needs filled in before D/C Order can be placed): Home, Self Care
--- NOTE | 2023-01-05 16:21 | OP.PCM_ITS ---
Report of Operation Date of Procedure: 01/05/23 Description of Surgical Findings:: Preoperative diagnosis: Left open olecranon fracture, delayed presentation Postoperative diagnosis: Left open olecranon fracture, delayed presentation Procedure: Left olecranon open reduction internal fixation with irrigation jeremiah ridement of skin, subcutaneous tissue, fascia and bone Surgeon: Nick Proctor DO Rn Patient Services: NICKOLAS Ga Anesthesia: General endotracheal Anesthesiologist: Dr. Kolb Complications: None apparent Drains: None Estimated blood loss: 75 cc Urinary output: None IV fluids: 800 cc crystalloid Specimens: None Surgical implants: Synthes stainless steel 3.5 mm LCP olecranon plate 2 hole with combination of cortical and locking screws Surgical indications: This is a 72-year-old male who sustained a fall on a flexed left elbow while he was hiking in [place] approximately 3 weeks ago. He noted pain and bleeding from the left elbow. Patient was in a remote area [place] and did not seek medical attention. He applied Neosporin ointment and dressing changes to the left elbow. He states the bleeding stopped after a few days. He had persistent pain in the left elbow. After returning home, he sought medical attention. He was seen in our office last week. X-rays were obtained of his left elbow and demonstrated a displaced olecranon fracture consistent with an avulsion fracture of the left triceps tendon. Patient had significant extensor lag and palpable step-off at the fracture site. The laceration was well-healed without erythema or drainage. He was started on oral Keflex. I recommended surgical intervention in the form of irrigation and debridement of the left elbow with open reduction internal fixation of the left olecranon. I reviewed the risks, benefits, alternatives to procedure. Risks included but were not limited to bleeding, flexion, loss of life or limb, nonhealing bone or wounds, stiffness, neurovascular injury, need for hardware removal, persistent extensor lag, risk of anesthesia, DVT or PE. Patient expressed understanding of these risks and wished proceed with surgery. Description of procedure: Patient was seen in preoperative holding area. He was identified by name, medical record number, date of . The operative extremity was marked with a surgical marker. We confirmed informed consent with the patient and all questions were answered to his satisfaction. Anesthesia consent was also obtained by the anesthesia team prior to procedure. At time of his procedure, patient was brought to the operative suite and positioned supine on a standard operating table. 2 g Ancef was administered room time. General anesthesia was induced and endotracheal tube placed. All bony prominences well-padded. Patient was positioned in lateral decubitus position with the left side up. An axillary roll was placed. Fibular head was free on the down leg. All bony prominences were well-padded in the lateral decubitus position. We positioned the patient in the lateral decubitus position utilizing a beanbag positioner. The operative extremity was brought over a radiolucent post. A well-padded pneumatic tourniquet was applied to left upper arm. We then prepped and draped the left upper extremity in normal, sterile orthopedic fashion after rotating the bed 90 degrees. We performed a timeout with all parties in attendance in agreement with the side, site, operation to be performed. No concerns were voiced elected proceed with surgery. I elevated exsanguinated the left upper extremity Esmarch bandage.. Tourniquet was inflated to 250 mmHg remained up for 45 minutes. I then planned a curvili near incision over the olecranon curving slightly ulnar to incorporate the approximately 1 cm scar for planned skin incision. Skin and subcutaneous tissue was sharply dissected with a 10 blade scalpel excising approximately 5 x 5 mm of skin. Bursa was encountered and opened in line with the incision. Fracture site was then encountered. Early fracture callus was encountered and debrided sharply with a 15 blade and rongeur. Periosteum was elevated approximately 3 mm proximal and distal to the fracture site. The wound was copiously irrigated with 1 L of normal saline solution. The elbow joint was examined and no evidence of septic arthritis were encountered. Visualized articular surfaces were pristine. I then achieved anatomic reduction of the fracture site with a pointed reduction clamp. This was held in place with 2 orthogonal K wires. Fluoroscopy confirmed acceptable reduction. I then selected a 2 hole plate. To allow for additional fixation I split the triceps tendon longitudinally in its central third. The plate was placed in this triceps split. The proximal portion of the plate was compressed to bone with a threaded compression K wire. I then secured the plate to bone with a cortical screw in the distal segment. I then placed an eccentric 3.5 mm compression screw in the oblong hole of the plate for additional compression across fracture site. 3 unicortical locking screws were placed in the proximal segment. 2 additional locking screws were placed in the distal segment, unicortical. Final fluoroscopic images were obtained. Elbow was brought through range of motion and demonstrated stable fixation. Tourniquet was deflated. Hemostasis was excellent. I then placed 1 g topical vancomycin powder in the wound for antibiotic prophylaxis. I then performed a running, locking suture with a #2 Ethibond through the triceps split tying the distal portion of the tendon through a empty screw hole in the plate for additional fixation. Several [id number] sutures were then placed across the triceps split to prevent propagation and promote tendon healing with a #2 Ethibond. Bursal layer was reapproximated with a running, locking 0 Vicryl suture. Dermis was reapproximated with buried 2-0 Vicryl suture. Skin was finally reapproximated with skin sosa. A tumescent field block was administered with 20 cc total of a 50: 50 mixture of 1% lidocaine with epinephrine 1: 200,000 and 0.5% plain bupivacaine. Bulky sterile compression dressing was applied. A well-padded posterior splint was applied with the wrist free in approximately 70 degrees of flexion. Patient was then repositioned in the supine position. He was safely extubated in the operative suite and transferred to his gurney and subsequently to PACU in stable condition. Post Operative Plan: Weightbearing: Nonweightbearing operative extremity Antibiotics: Ancef 2 g x 1 dose preoperatively, continue Keflex 4 times daily x14 days DVT Prophylaxis: Early ambulation, restart home Xarelto this evening Braun: None Dressing: Maintain splint until follow-up keep in a clean, dry and intact. X-Rays: X-rays in splint 2 weeks postoperatively Pain Medication: Oxycodone Prescription provided in the office Follow-up: 2 week post-operatively with me in the office for wound check and x- rays in splint Plan to initiate physical therapy in 2 weeks with gradual increase of flexion.
[2023-01-05 16:30] VITALS: BP 126/81; BP 141/73; PULSE 75; RESP 16; O2SAT 99
[2023-01-05 16:45] VITALS: BP 126/74; BP 141/73; PULSE 76; RESP 16; TEMP 36.4; O2SAT 96
[2023-01-05] MEDS: Oxycodone/Apap 5/325 Tablet PO ×2 (17:20→17:41)
[2023-01-05 18:26] VITALS: BP 123/72; BP 141/73; PULSE 83; RESP 16; TEMP 37.7; O2SAT 96
== END 2023-01-05 18:40 | disposition home or self-care (01) ==
LOC: SDC 13:02 → AC 13:03
PROVIDERS: PCP Family Medicine; Referring Provider Student in an Organized Health Care Education/Training Program; Visit Provider Student in an Organized Health Care Education/Training Program
PROC: (CPT 11011; principal; 2023-01-05 14:15)
DX: S52.032B Displaced fracture of olecranon process with intraarticular extension of left ulna, initial encounter for open fracture type I or II (principal); I48.91 Unspecified atrial fibrillation; E11.9 Type 2 diabetes mellitus without complications; Z79.01 Long term (current) use of anticoagulants; R23.3 Spontaneous ecchymoses; E78.00 Pure hypercholesterolemia, unspecified; I10 Essential (primary) hypertension; N42.9 Disorder of prostate, unspecified; Z87.891 Personal history of nicotine dependence; E66.3 Overweight; Z68.26 Body mass index [BMI] 26.0-26.9, adult; W19.XXXA Unspecified fall, initial encounter
CPT/HCPCS: 11011; 24635; 01740; 36415; 71046; 73070; 76000; 80048; 83036; 85025; 93005; C1713; J7120; J2405

== ENCOUNTER → 2024-07-06 | Outpatient (CLI) | payer MEDICARE, OTHER, SELFPAY ==
[2024-07-06 09:39] LABS: PSA,Total- Diagnostic 0.18 ng/mL (0.00-4.00)
== END | disposition home or self-care (01) ==
LOC: LAB 08:19
PROVIDERS: PCP Family Medicine; Referring Provider Urology; Visit Provider Urology
DX: N40.0 Benign prostatic hyperplasia without lower urinary tract symptoms (principal)
CPT/HCPCS: 36415; 84153